=== PATIENT | female | born 1950 | race Caucasian/White ===

== ENCOUNTER → 2016-11-29 | Outpatient (CLI) | payer MEDICARE, OTHER | LOC: WI 09:40 | PROVIDERS: ATTEND Family Medicine | DX: N64.4 Mastodynia (principal) | CPT/HCPCS: 76642; G0204; 77066 ==

== ENCOUNTER → 2017-05-03 | Outpatient (CLI) | payer MEDICARE, OTHER ==
--- NOTE | 2017-05-03 10:17 | RADIOLOGY REPORT (SQ) ---
EXAM DESCRIPTION: HIP LEFT AP/LATERAL COMPLETED DATE/TIME: 05/03/2017 9:15 am REASON FOR STUDY: PAIN IN LT HIP/LT KNEE M25.552 PAIN IN LEFT HIP M25.562 PAIN IN LEFT KNEE COMPARISON: None. NUMBER OF VIEWS: Two views. TECHNIQUE: AP pelvis and additional frog-leg view of the left hip. LIMITATIONS: None. FINDINGS: MINERALIZATION: Osteopenic LEFT HIP: No fracture or dislocation. No significant joint space narrowing. No significant left anabella tabular or femoral head bony spurring. RIGHT HIP: Hip replacement. There is mild lucency along the distal tip of the prosthesis which could indicate loosening. PUBIS AND ISCHIUM: No fracture. PELVIS: No fracture. SACRUM: No fracture or dislocation. No worrisome bone lesions. LOWER LUMBAR SPINE: No fracture or dislocation. No worrisome bone lesions. No significant disc disea se. SOFT TISSUES: Surgical clips in the pelvis and left lower quadrant OTHER: No other significant finding. IMPRESSION: No plain film findings to explain history of left hip pain. TECHNICAL DOCUMENTATION: JOB ID: [id number] [employer]- All Rights Reserved
--- NOTE | 2017-05-03 10:19 | RADIOLOGY REPORT (SQ) ---
EXAM DESCRIPTION: KNEE LEFT 3 VIEWS COMPLETED DATE/TIME: 05/03/2017 9:16 am REASON FOR STUDY: PAIN IN LT HIP/LT KNEE M25.552 PAIN IN LEFT HIP M25.562 PAIN IN LEFT KNEE COMPARISON: Left hip films same date NUMBER OF VIEWS: Three views. TECHNIQUE: AP, lateral, and sunrise patella radiographic images acquired of the left knee. LIMITATIONS: None. FINDINGS: MINERALIZATION: Osteopenic BONES: No acute fracture or dislocation. No worrisome bone lesions. JOINT: Small suprapatellar knee joint effusion. There is moderate patellofemoral and lateral compart ment joint space narrowing and bony spurring. SOFT TISSUES: No soft tissue swelling. No radio-opaque foreign body. OTHER: No other significant finding. IMPRESSION: Small knee joint effusion. Moderate osteoarthritis in the patellofemoral and lateral compartment TECHNICAL DOCUMENTATION: JOB ID: [id number] [employer]- All Rights Reserved
== END ==
LOC: OD 08:50
PROVIDERS: ATTEND Family Medicine
DX: M25.552 Pain in left hip (principal); M25.562 Pain in left knee

== ENCOUNTER → 2017-05-30 | Outpatient (CLI) | payer MEDICARE, OTHER ==
--- NOTE | 2017-05-30 15:44 | WOMENS IMAGING REPORT ---
EXAM DESCRIPTION: BONE DENSITY HIP/SPINE COMPLETED DATE/TIME: 05/30/2017 2:34 pm REASON FOR STUDY: OSTEOPOROSIS M81.0 AGE-RELATED OSTEOPOROSIS W/O CURRENT PATHOLOGICAL FRAC COMPARISON: None. TECHNIQUE: Dual-Energy X-ray Absorptiometry (DEXA) of the AP Spine and Hip. LIMITATIONS: None. FINDINGS: LUMBAR SPINE: The bone mineral density (BMD) measured from L1-L4 in the AP projection correlates with a T-score of -0.5, which is normal as defined by the World Health Organization. HIP: The bone mineral density (BMD) measured in the left hip correlates with a T-score of -0.8, which is n ormal as defined by the World Health Organization. IMPRESSION: 1. LUMBAR SPINE: NORMAL. 2. HIP: NORMAL. COMMENT: The World Health Organization defines low BMD as follows: T-score: Normal: Greater than -1.0 Osteopenia: Between -1.0 and -2.5 Osteoporosis: Less than -2.5 without fractures Established osteoporosis: Less than -2.5 with fractures In general, you may wish to consider: Diagnosis Treatment Follow-up DEXA Normal BMD Prevention 2-3 years Osteopenia Prevention/Therapy 1-2 years Osteoporosis Therapy Yearly TECHNICAL DOCUMENTATION: JOB ID: [id number]- All Rights Reserved
== END ==
LOC: WI 13:46
PROVIDERS: ATTEND Physician Assistant Surgical
DX: M81.0 Age-related osteoporosis without current pathological fracture (principal)
CPT/HCPCS: 77080

== ENCOUNTER 2017-06-19 14:17 | Emergency (ER) | payer MEDICARE, OTHER ==
[2017-06-19] MEDS ORDERED: ASPIRIN 81 MG TABLET, CHEWABLE PO ONE (14:27)
--- NOTE | 2017-06-19 15:20 | ER Document Report ---
ED GI/ - General Chief Complaint: Abdominal Pain Stated Complaint: abdominal pain Time Seen by Provider: 06/19/17 14:42 Information source: Patient Notes: Patient is a 66-year-old female that states last night she had 4 episodes of nonbilious nonbloody vomiting. She states today she had 2 bouts of nonbloody diarrhea. She has had no vomiting today. She denies any fevers. She denies any flank pain or dysuria. Patient does state that she had some right lower quadrant pain, 8 out of 10, with little radiation to her right lower back. When asked about the chest pain complaint, she states last night with vomiting she had some substernal discomfort. She denies any aggravating or relieving factors to the abdominal or chest discomfort. She denies any pain today. Patient states she does have a history of intermittent atrial fibrillation. She denies being on any blood thinning medications. TRAVEL OUTSIDE OF THE [place] IN LAST 30 DAYS: No - HPI Patient complains to provider of: Abdominal pain, Diarrhea, Vomiting Onset: Other - See above Timing/Duration: Gradual Quality of pain: Achy, Sharp Severity at maximum: Moderate Severity in ED: None Pain Level: 0 Location: Other - See above Vaginal bleeding (Compared to normal period): None Sexual history: Inactive Associated symptoms: Other - See above Exacerbated by: Denies Relieved by: Denies Similar symptoms previously: No Recently seen / treated by doctor: No - Related Data Allergies/Adverse Reactions: Sulfa (Sulfonamide Antibiotics) Allergy (Severe, Verified 06/19/17 14:18) Anaphylaxis hydrocodone [From Vicodin] Allergy (Mild, Verified 06/19/17 14:18) ITCHING Home Medications: Current Home Medications Citalopram Hydrobromide [Citalopram HBr] 1 tab PO QAM 06/19/17 [History] Furosemide [Furosemide] 1 tab PO QAM 06/19/17 [History] Potassium Chloride 1 tab PO QAM 06/19/17 [History] Sodium Chloride [Saline Nasal [place]] 2 sprays NAREB QAM 06/19/17 [History] Past Medical History - General Information source: Patient - Social History Smoking Status: Unknown if Ever Smoked Cigarette use (# per day): No Chew tobacco use (# tins/day): No Smoking Education Provided: No Frequency of alcohol use: None Family History: Reviewed & Not Pertinent - Past Medical History Cardiac Medical History: Denies: Hx Coronary Artery Disease, Hx Heart Attack, Hx Hypertension Pulmonary Medical History: Reports: Hx Pneumonia - HX Denies: Hx Asthma, Hx Bronchitis, Hx COPD Neurological Medical History: Denies: Hx Cerebrovascular Accident, Hx Seizures Musculoskeltal Medical History: Reports Hx Arthritis - Immunizations Hx Diphtheria, Pertussis, Tetanus Vaccination: - UNSURE WHEN LAST ONE Review of Systems - Review of Systems Constitutional: denies: Fever EENT: denies: Eye discharge, Nose discharge Cardiovascular: Lightheaded. denies: Palpitations Respiratory: denies: Cough, Short of breath Gastrointestinal: Vomiting Genitourinary: denies: Dysuria Musculoskeletal: denies: Leg swelling Skin: Other - no hives. denies: Rash Neurological/Psychological: Other - no slurred speech -: Yes All other systems reviewed and negative Physical Exam - Vital signs Vitals: Pulse Resp 68 18 06/19/17 14:20 06/19/17 14:20 Notes: Reviewed vital signs and nursing note as charted by RN. CONSTITUTIONAL: Alert and oriented and responds appropriately to questions. Well -appearing; well-nourished HEAD: Normocephalic; atraumatic EYES: Sclerae non-icteric ENT: Normal nose; no rhinorrhea; moist mucous membranes; pharynx without lesions noted NECK: Supple without meningismus; non-tender; no cervical lymphadenopathy, no masses CARD: Regular rate and rhythm; no murmurs RESP: Normal chest excursion without splinting or tachypnea; breath sounds clear and equal bilaterally ABD/GI: Normal bowel sounds; elevated BMI; soft, non-tender currently to deep palpation in all 4 quadrants of the abdomen. There are no abdominal masses or inguinal hernias. No abdominal bruits present BACK: The back appears normal and is non-tender to palpation, there is no CVA tenderness EXT: Normal ROM in all joints; non-tender to palpation; no cyanosis, no effusions, no edema SKIN: Normal color for age and race; warm; dry; good turgor; capillary refill < 2 seconds; no acute lesions noted NEURO: CN II through XII are intact. Moves all extremities equally; Motor and sensory function intact PSYCH: The patient's mood and manner are appropriate. Grooming and personal hygiene are appropriate. Course - Re-evaluation Re-evalutation: 06/19/17 15:19 Given the above history and physical examination, we will obtain basic labs, liver panel, lipase, EKG, troponin, and lactic acid level. I would like to obtain the patient's urine analysis to see if there was blood present. Patient does have a history of kidney stones. Patient's BMI is elevated. If urine analysis shows possible hematuria I will most likely perform a noncontrasted CT scan of the abdomen and pelvis. If there is no obvious hematuria, I will provide IV contrast to assess the right lower quadrant. Patient has no tenderness currently. Vital signs are stable. 06/19/17 15:29 EKG shows a heart of 64, normal sinus rhythm, normal axis, no obvious ST elevation or depression, inverted T waves in leads III, aVF, V2 through V5. 06/19/17 16:35 Urine analysis is still pending. I called and spoke to the lab and they state that the urine analysis analyzer is currently broken. They are trying to look manually. Patient's lactic acid is returned to 2.3 but they state the other labs of hemolyzed. I will proactively order Rocephin, 1 g. I will add a CT scan Icurrently without contrast as I do not want to wait any further. 06/19/17 17:01 We were told at the patient's labs were hemolyzed. The patient was expedited to CT scan. It does show hemolyzed/canceled on all the chemistry. However, the patient's labs have resulted. Patient is already been taken for noncontrast CT scan due to the urgency of the lactic acid and abdominal pain. We are waiting on the noncontrast CT scan result. 06/19/17 17:46 CT scan as recorded consistent with a distal right ureteral kidney stone. Patient's pain is currently controlled. Liter of fluid has been provided. No obvious urinary tract infection. White blood cell count is recorded. Kidney function is recorded. Initial lactic acid is recorded, and a liter of fluid has been given. - Vital Signs Vital signs: Temp Pulse Resp BP Pulse Ox 68 15 107/63 95 06/19/17 14:20 06/19/17 15:01 06/19/17 15:01 06/19/17 15:01 - Laboratory Result Diagrams: 06/19/17 15:41 06/19/17 15:41 Laboratory results interpreted by me: 12/04/17 12/04/17 12/04/17 14:52 15:41 15:41 RDW 15.4 H Seg Neutrophils % 81.6 H Lymphocytes % 9.6 L BUN Est GFR (Non-Af Amer) Lactic Acid 2.3 H Ur Leukocyte Esterase SMALL H 06/19/17 15:41 RDW Seg Neutrophils % Lymphocytes % BUN 25 H Est GFR (Non-Af Amer) 58 L Lactic Acid Ur Leukocyte Esterase Discharge - Discharge Clinical Impression: Kidney stone on right side Vomiting Qualifiers: Vomiting type: unspecified Vomiting Intractability: non-intractable Nausea presence: with nausea Qualified Code(s): R11.2 - Nausea with vomiting, unspecified Diarrhea Qualifiers: Diarrhea type: unspecified type Qualified Code(s): R19.7 - Diarrhea, unspecified Abdominal pain Qualifiers: Abdominal location: right lower quadrant Qualified Code(s): R10.31 - Right lower quadrant pain Chest pain Qualifiers: Chest pain type: unspecified Qualified Code(s): R07.9 - Chest pain, unspecified Condition: Good Disposition: HOME, SELF-CARE Additional Instructions: Come back immediately with any return of abdominal pain, increased pain, fevers , persistent vomiting, change in location or quality of pain, any chest pain or shortness of breath, or any other acute problems. Please make sure that she follow-up with your primary care physician as we have discussed. Please also call Dr. Lane's office tomorrow morning at [phone]. Tell his office that you were seen in the emergency department with a kidney stone with a possible infection and was told to follow-up in his office in the next 2 days. Please take the antibiotics as prescribed. Please follow up also with your primary doctor regarding your atypical chest discomfort. Prescriptions: Cefuroxime Axetil [Ceftin 500 mg Tablet] 1 tab PO BID #20 tablet Hydrocodone/Acetaminophen [[place] 5-325 Tablet] 1 each PO Q6 PRN #12 tablet PRN Reason: For Pain Ondansetron [Zofran Odt 4 mg Tablet] 1 tab PO Q6H #15 tab.rapdis Referrals: DIAMOND TORRES MD [Primary Care Provider] - Follow up as needed
--- NOTE | 2017-06-19 15:26 | RADIOLOGY REPORT (SQ) ---
EXAM DESCRIPTION: CHEST SINGLE VIEW COMPLETED DATE/TIME: 06/19/2017 2:57 pm REASON FOR STUDY: cp COMPARISON: None. EXAM PARAMETERS: NUMBER OF VIEWS: One view. TECHNIQUE: Single frontal radiographic view of the chest acquired. RADIATION DOSE: NA LIMITATIONS: None. FINDINGS: LUNGS AND PLEURA: No opacities, masses or pneumothorax. No pleural effusion. MEDIASTINUM AND HILAR STRUCTURES: No masses. Contour normal. HEART AND VASCULAR STRUCTURES: Heart normal in size. Normal vasculature. BONES: No acute findings. HARDWARE: None in the chest. OTHER: No other significant finding. IMPRESSION: NO ACUTE RADIOGRAPHIC FINDING IN THE CHEST. TECHNICAL DOCUMENTATION: JOB ID: [id number] [employer]- All Rights Reserved
[2017-06-19 16:18] LABS: ABSOLUTE EOSINOPHILS # (AUTO) 0.1 10^3/uL (0.0-0.6); ABSOLUTE LYMPHOCYTES (AUTO) 0.7 10^3/uL (0.5-4.7); ABSOLUTE MONOCYTES (AUTO) 0.5 10^3/uL (0.1-1.4); ABSOLUTE NEUT (AUTO) 5.8 10^3/uL (1.7-8.2); BASOPHILS % (AUTO) 0.6 % (0-2); HEMATOCRIT 38.6 % (36.0-47.0); HGB HCT DIFFERENCE 0.4; LYMPHOCYTES % (AUTO) 9.6 % (13-45); MEAN CORPUSCULAR HEMOGLOBIN 27.1 pg (27.0-33.4); MEAN CORPUSCULAR HGB CONC 33.7 g/dL (32.0-36.0); MEAN CORPUSCULAR VOLUME 81 fl (80-97); MONOCYTES % (AUTO) 7.2 % (3-13); RED BLOOD COUNT 4.78 10^6/uL (3.72-5.28); RED CELL DISTRIBUTION WIDTH 15.4 % (11.5-14.0); SEGMENTED NEUTROPHILS % (AUTO) 81.6 % (42-78); WHITE BLOOD COUNT 7.2 10^3/uL (4.0-10.5)
[2017-06-19 16:32] LABS: APPEARANCE,URINE CLEAR; BILIRUBIN,URINE NEGATIVE (NEGATIVE); GLUCOSE, URINE NEGATIVE (NEGATIVE); KETONES,URINE NEGATIVE (NEGATIVE); LEUKOCYTE ESTERASE,URINE SMALL (NEGATIVE); NITRITE,URINE NEGATIVE (NEGATIVE); PROTEIN,URINE NEGATIVE (NEGATIVE); URINE SPECIFIC GRAVITY 1.011; UROBILINOGEN,URINE NEGATIVE mg/dL (<2.0)
[2017-06-19] MEDS ORDERED: CEFTRIAXONE 1 GM/D5W RTU 1 GM/50 ML RTUPB IV ONE (16:35)
[2017-06-19] MEDS ORDERED: MORPHINE SULFATE 10 MG/ML INJ IV ONE (16:35)
[2017-06-19 16:40] LABS: RBC,URINE RARE /HPF; WBC,URINE RARE /HPF
[2017-06-19 16:44] LABS: CREATINE KINASE MB 1.02 ng/mL (<4.55)
[2017-06-19 16:45] LABS: TROPONIN I < 0.012 ng/mL
[2017-06-19 16:51] LABS: ALANINE AMINOTRANSFERASE 34 U/L (9-52); ALBUMIN 4.1 g/dL (3.5-5.0); ALKALINE PHOSPHATASE 99 U/L (38-126); ANION GAP 12 (5-19); ASPARTATE AMINO TRANSFERASE 23 U/L (14-36); BILIRUBIN,DIRECT 0.4 mg/dL (0.0-0.4); BILIRUBIN,TOTAL 0.6 mg/dL (0.2-1.3); BLOOD UREA NITROGEN 25 mg/dL (7-20); CALCIUM 9.1 mg/dL (8.4-10.2); CARBON DIOXIDE 24 mmol/L (22-30); CHLORIDE 106 mmol/L (98-107); CREATINE KINASE 103 U/L (30-135); CREATININE RESULT 0.96 mg/dL (0.52-1.25); GLUCOSE 104 mg/dL (75-110); LIPASE 70.8 U/L (23-300); POTASSIUM 3.9 mmol/L (3.6-5.0); SODIUM 141.7 mmol/L (137-145); TOTAL PROTEIN 6.7 g/dL (6.3-8.2)
--- NOTE | 2017-06-19 17:36 | RADIOLOGY REPORT (SQ) ---
EXAM DESCRIPTION: CT ABD/PELVIS NO ORAL OR IV COMPLETED DATE/TIME: 06/19/2017 4:58 pm REASON FOR STUDY: 12, RLQ pain, increased lactic acid COMPARISON: None. TECHNIQUE: CT scan of the abdomen and pelvis performed without intravenous or oral contrast. Images reviewed with lung, soft tissue, and bone windows. Reconstructed coronal and sagittal MPR images revi ewed. All images stored on PACS. All CT scanners at this facility use dose modulation, iterative reconstruction, and/or weight based d osing when appropriate to reduce radiation dose to as low as reasonably achievable (ALARA). [facility]: Dose Right [facility]: CareDose [facility]: Dose Right [facility]: Teradose 4D [facility]: Smart Technologies RADIATION DOSE: mGy. LIMITATIONS: None. FINDINGS: LOWER CHEST: No significant findings. No nodules or infiltrates. NON-CONTRASTED LIVER, SPLEEN, ADRENALS: Evaluation limited by lack of IV contrast. No identified sign ificant masses. PANCREAS: No masses. No peripancreatic inflammatory changes. GALLBLADDER: Surgically absent. RIGHT KIDNEY AND URETER: No suspicious masses. Assessment limited by lack of IV contrast. No signif icant calcifications. Mild right hydronephrosis/ hydroureter. It appears that there may be 4 mm ca lculus in the distal right ureter. This area is somewhat obscured by artifact from right hip arthrop lasty. See image 79. LEFT KIDNEY AND URETER: No suspicious masses. Assessment limited by lack of IV contrast. No signifi cant calcifications. No hydronephrosis or hydroureter. AORTA AND RETROPERITONEUM: No aneurysm. No retroperitoneal masses or adenopathy. BOWEL AND PERITONEAL CAVITY: No obvious masses or inflammatory changes. No free fluid. Radiopaque chavez ture is seen in the bowel loops on the left side of the abdomen. APPENDIX: Normal. PELVIS, BLADDER, AND ABDOMINAL WALL:Urinary bladder is normal. Possible distal ureteral calcificatio n as discussed above. Evaluation of the mid and lower pelvis somewhat limited by artifact from a rig ht hip arthroplasty. BONES: No significant findings. OTHER: No other significant finding. IMPRESSION: 1. Right hydronephrosis/hydroureter secondary to a 4 mm calculus in the distal right ur eter. 2. Surgical changes in the bowel in the left side of the abdomen. COMMENT: Quality ID # [id number]: Final reports with documentation of one or more dose reduction techniques (e.g., Automated exposure control, adjustment of the mA and/or kV according to patient size, use of iterative reconstruction technique) TECHNICAL DOCUMENTATION: JOB ID: [id number] [employer]- All Rights Reserved
[2017-06-19] MEDS ORDERED: NORMAL SALINE 1000 ML 1,000 ML IV ONE ×2 (17:50→17:57)
[2017-06-19 20:31] VITALS: BP 105/57
--- NOTE | 2017-06-19 20:44 | EKG REPORT ---
SEVERITY:- ABNORMAL ECG - SINUS RHYTHM ABNORMAL T, CONSIDER ISCHEMIA, DIFFUSE LEADS : Confirmed by: Roque Núñez 19-Jun-2017 20:43:49
== END 2017-06-19 20:30 | disposition home or self-care (01) ==
LOC: ER 14:17
DX: N20.0 Calculus of kidney (principal); R10.31 Right lower quadrant pain; R07.9 Chest pain, unspecified; R11.2 Nausea with vomiting, unspecified; R19.7 Diarrhea, unspecified; Z88.2 Allergy status to sulfonamides; Z88.6 Allergy status to analgesic agent
CPT/HCPCS: 93005; 99285; 96361; 96375; 96365; 36415; 87040; 87086; 82553; 82550; 83605; 83690; 85025; 80053; 81001; 84484; 71010; 74176; 93010; A9270; J2270; J7030; J0696

== ENCOUNTER → 2017-09-05 | Outpatient (CLI) | payer MEDICARE, OTHER ==
[2017-09-05 11:16] LABS: APPEARANCE,URINE SLIGHTLY-CLOUDY; BILIRUBIN,URINE NEGATIVE (NEGATIVE); COLOR,URINE YELLOW; GLUCOSE, URINE NEGATIVE (NEGATIVE); KETONES,URINE NEGATIVE (NEGATIVE); LEUKOCYTE ESTERASE,URINE NEGATIVE (NEGATIVE); NITRITE,URINE NEGATIVE (NEGATIVE); PROTEIN,URINE NEGATIVE (NEGATIVE); URINE SPECIFIC GRAVITY 1.011; UROBILINOGEN,URINE NEGATIVE mg/dL (<2.0)
[2017-09-05 11:21] LABS: ABSOLUTE BASOPHILS # (AUTO) 0.1 10^3/uL (0.0-0.2); ABSOLUTE EOSINOPHILS # (AUTO) 0.1 10^3/uL (0.0-0.6); ABSOLUTE LYMPHOCYTES (AUTO) 1.1 10^3/uL (0.5-4.7); ABSOLUTE MONOCYTES (AUTO) 0.5 10^3/uL (0.1-1.4); BASOPHILS % (AUTO) 1.2 % (0-2); EOSINOPHILS % (AUTO) 1.7 % (0-6); HEMATOCRIT 41.5 % (36.0-47.0); HEMOGLOBIN 13.9 g/dL (12.0-15.5); LYMPHOCYTES % (AUTO) 19.4 % (13-45); MEAN CORPUSCULAR HEMOGLOBIN 27.7 pg (27.0-33.4); MEAN CORPUSCULAR HGB CONC 33.5 g/dL (32.0-36.0); MEAN CORPUSCULAR VOLUME 83 fl (80-97); MONOCYTES % (AUTO) 8.4 % (3-13); PLATELET COUNT 240 10^3/uL (150-450); RED BLOOD COUNT 5.02 10^6/uL (3.72-5.28); RED CELL DISTRIBUTION WIDTH 16.7 % (11.5-14.0); SEGMENTED NEUTROPHILS % (AUTO) 69.3 % (42-78); TOTAL CELLS COUNTED % (AUTO) 100 %; WHITE BLOOD COUNT 5.7 10^3/uL (4.0-10.5)
[2017-09-05 11:35] LABS: ANION GAP 12 (5-19); BLOOD UREA NITROGEN 23 mg/dL (7-20); CALCIUM 8.6 mg/dL (8.4-10.2); CARBON DIOXIDE 23 mmol/L (22-30); CHLORIDE 106 mmol/L (98-107); GLUCOSE 75 mg/dL (75-110); POTASSIUM 4.9 mmol/L (3.6-5.0)
--- NOTE | 2017-09-05 13:19 | RADIOLOGY REPORT (SQ) ---
EXAM DESCRIPTION: CHEST PA/LATERAL COMPLETED DATE/TIME: 09/05/2017 12:08 pm REASON FOR STUDY: PRE OP COMPARISON: 06/19/2017 NUMBER OF VIEWS: Two view. TECHNIQUE: Frontal and lateral radiographic views of the chest acquired. LIMITATIONS: None. FINDINGS: LUNGS AND PLEURA: No opacities, masses or pneumothorax. No pleural effusion. MEDIASTINUM AND HILAR STRUCTURES: No masses or contour abnormalities. HEART AND VASCULATURE: Heart normal size. No evidence for failure. BONY STRUCTURES: No acute findings. HARDWARE: None. OTHER: No other significant finding. IMPRESSION: NO SIGNIFICANT RADIOGRAPHIC FINDING IN THE CHEST. TECHNICAL DOCUMENTATION: JOB ID: [id number] [employer]- All Rights Reserved
--- NOTE | 2017-09-05 18:48 | EKG REPORT ---
SEVERITY:- ABNORMAL ECG - SINUS RHYTHM NONSPECIFIC T ABNORMALITIES, DIFFUSE LEADS : Confirmed by: Crispin Merritt MD 05-Sep-2017 18:47:44
== END ==
LOC: OD 10:22
PROVIDERS: ATTEND Orthopaedic Surgery
DX: Z01.810 Encounter for preprocedural cardiovascular examination (principal); Z01.812 Encounter for preprocedural laboratory examination; Z01.818 Encounter for other preprocedural examination
CPT/HCPCS: 36415; 71046; 80048; 81001; 85025; 93005; 93010

== ENCOUNTER → 2017-09-06 | Outpatient (CLI) | payer MEDICARE, OTHER ==
--- NOTE | 2017-09-07 09:19 | WOMENS IMAGING REPORT ---
EXAM DESCRIPTION: BILAT DIAGNOSTIC MAMMO W/CAD; U/S BREAST UNILAT LIMITED COMPLETED DATE/TIME: 09/06/2017 11:30 am; 09/06/2017 11:55 am REASON FOR STUDY: MASTODYNIA; N64.4; LEFT BREAST PAIN N64.4 N64.4 MASTODYNIA COMPARISON: Mammograms 11/29/2016, 11/18/2015 TECHNIQUE: Standard craniocaudal and mediolateral oblique views of each breast recorded using digita l acquisition. Additional left breast 90 mediolateral view and exaggerated craniocaudad view. Left breast ultrasound was also performed. LIMITATIONS: None. FINDINGS: RIGHT BREAST MASSES: No suspicious masses. CALCIFICATIONS: No new or suspicious calcifications. ARCHITECTURAL DISTORTION: Old right breast lumpectomy scar 3 o'clock position with benign dystrophic calcification, stable DEVELOPING DENSITY: None. ASYMMETRY: None noted. OTHER: No other significant findings. LEFT BREAST MASSES: No suspicious masses. CALCIFICATIONS: No new or suspicious calcifications. ARCHITECTURAL DISTORTION: Patient has an old lumpectomy site in the far lateral left breast about the 2 o'clock position. This is stable mammographically compared to prior studies. Surgical clips at t he lumpectomy site are present DEVELOPING DENSITY: None. ASYMMETRY: None noted. OTHER: No other significant finding. Read with the assistance of CAD: .[facility] - R2 Cenova Version 1.3 .[facility] - R2 Cenova Version 1.3 .[facility] - R2 Cenova Version 2.4 .[facility] [place] R2 Cenova Version 2.4 .[facility] - R2 [employer] Version 9.2 Patient describes an area of left breast pain adjacent to the lumpectomy scar left upper outer quadra nt. Ultrasound of the area of breast pain along the scar demonstrates no discrete cystic or solid le sions. There is a bandlike area of acoustic absorption compatible with scar which correlates with th e skin incision. IMPRESSION: No mammographic evidence for malignancy right breast. No mammographic or sonographic evidence for malignancy left breast BREAST DENSITY: b. There are scattered areas of fibroglandular density. BIRAD: 2 Benign findings. RECOMMENDATION: RECOMMENDED FOLLOW UP: Clinical followup for breast pain. Otherwise, please continu e yearly bilateral screening exam in August 2018. Consider bilateral screening tomosynthesis SPECIFIC INTERVENTION/IMAGING/CONSULTATION RECOMMENDED:No additional intervention/ imaging/consultati on needed at this time. COMMUNICATION:Patient notified by letter COMMENT: The patient has been notified of the results by letter per MQSA requirements. Additional no tification policies are in place for contacting patient with suspicious or incomplete findings. Quality ID #225: The [employer] recommends an annual screening mammogram for women aged 40 years or over. This facility utilizes a reminder system to ensure that all patients receive reminder letters, and/or direct phone calls for appointments. This includes reminders for routine scr eening mammograms, diagnostic mammograms, or other Breast Imaging Interventions when appropriate. Th is patient will be placed in the appropriate reminder system. The [employer] (ACR) has developed recommendations for screening MRI of the breast s in certain patient populations, to be used in conjunction with mammography. Breast MRI surveillanc e may be appropriate for women with more than 20% lifetime risk of developing breast cancer as deter mined by genetic testing, significant family history of the disease, or history of mantle radiation f or Hodgkins Disease. ACR Practice Guidelines 2008. TECHNICAL DOCUMENTATION: FINDING NUMBER: (1) ASSESSMENT: (1) JOB ID: [id number] [employer]- All Rights Reserved
--- NOTE | 2017-09-07 09:19 | WOMENS IMAGING REPORT ---
EXAM DESCRIPTION: BILAT DIAGNOSTIC MAMMO W/CAD; U/S BREAST UNILAT LIMITED COMPLETED DATE/TIME: 09/06/2017 11:30 am; 09/06/2017 11:55 am REASON FOR STUDY: MASTODYNIA; N64.4; LEFT BREAST PAIN N64.4 N64.4 MASTODYNIA COMPARISON: Mammograms 11/29/2016, 11/18/2015 TECHNIQUE: Standard craniocaudal and mediolateral oblique views of each breast recorded using digita l acquisition. Additional left breast 90 mediolateral view and exaggerated craniocaudad view. Left breast ultrasound was also performed. LIMITATIONS: None. FINDINGS: RIGHT BREAST MASSES: No suspicious masses. CALCIFICATIONS: No new or suspicious calcifications. ARCHITECTURAL DISTORTION: Old right breast lumpectomy scar 3 o'clock position with benign dystrophic calcification, stable DEVELOPING DENSITY: None. ASYMMETRY: None noted. OTHER: No other significant findings. LEFT BREAST MASSES: No suspicious masses. CALCIFICATIONS: No new or suspicious calcifications. ARCHITECTURAL DISTORTION: Patient has an old lumpectomy site in the far lateral left breast about the 2 o'clock position. This is stable mammographically compared to prior studies. Surgical clips at t he lumpectomy site are present DEVELOPING DENSITY: None. ASYMMETRY: None noted. OTHER: No other significant finding. Read with the assistance of CAD: .[facility] - R2 Cenova Version 1.3 .[facility] - R2 Cenova Version 1.3 .[facility] - R2 Cenova Version 2.4 [place] [place] Cenova Version 2.4 .[facility] - R2 [employer] Version 9.2 Patient describes an area of left breast pain adjacent to the lumpectomy scar left upper outer quadra nt. Ultrasound of the area of breast pain along the scar demonstrates no discrete cystic or solid le sions. There is a bandlike area of acoustic absorption compatible with scar which correlates with th e skin incision. IMPRESSION: No mammographic evidence for malignancy right breast. No mammographic or sonographic evidence for malignancy left breast BREAST DENSITY: b. There are scattered areas of fibroglandular density. BIRAD: 2 Benign findings. RECOMMENDATION: RECOMMENDED FOLLOW UP: Clinical followup for breast pain. Otherwise, please continu e yearly bilateral screening exam in August 2018. Consider bilateral screening tomosynthesis SPECIFIC INTERVENTION/IMAGING/CONSULTATION RECOMMENDED:No additional intervention/ imaging/consultati on needed at this time. COMMUNICATION:Patient notified by letter COMMENT: The patient has been notified of the results by letter per MQSA requirements. Additional no tification policies are in place for contacting patient with suspicious or incomplete findings. Quality ID #[id number]: The [employer] recommends an annual screening mammogram for women aged 40 years or over. This facility utilizes a reminder system to ensure that all patients receive reminder letters, and/or direct phone calls for appointments. This includes reminders for routine scr eening mammograms, diagnostic mammograms, or other Breast Imaging Interventions when appropriate. Th is patient will be placed in the appropriate reminder system. The [employer] (ACR) has developed recommendations for screening MRI of the breast s in certain patient populations, to be used in conjunction with mammography. Breast MRI surveillanc e may be appropriate for women with more than 20% lifetime risk of developing breast cancer as deter mined by genetic testing, significant family history of the disease, or history of mantle radiation f or Hodgkins Disease. ACR Practice Guidelines 2008. TECHNICAL DOCUMENTATION: FINDING NUMBER: (1) ASSESSMENT: (1) JOB ID: [id number] [employer]- All Rights Reserved
== END ==
LOC: WI 10:44
PROVIDERS: ATTEND Family Medicine
DX: N64.4 Mastodynia (principal)
CPT/HCPCS: 76642; 77066

== ENCOUNTER 2017-09-25 05:25 | Inpatient (IN) | payer MEDICARE, OTHER ==
[~2017-09-25 05:25] MED LIST: BUPIVACAINE INJ/PF LIPOSOME/PF 266 MG/20 ML SDV IJ PRN; CEFAZOLIN INJ 1 GM VIAL IV PRN; IBUPROFEN 800 MG in DEXTROSE 5%-WATER 250 ML IV PRN; IBUPROFEN 800 MG/NS 250 ML IV PRN; LACTATED RINGERS 1000 ML IV PRN; LANSOPRAZOLE 15 MG TAB.RAP.DR PO PRN; LIDOCAINE 0.5% INJ-PF (5 MG/ML) 50 ML SDV SUBCUT PRN; OXYCODONE HCL SR 10 MG TABLET PO PRN; VANCOMYCIN HCL 1,000 MG in DEXTROSE 5%-WATER 250 ML IV PRN
[2017-09-25] MEDS ORDERED: LIDOCAINE 2% INJ-PF (20 MG/ML) 10 ML AMPUL ONE (06:27)
[2017-09-25] MEDS ORDERED: FENTANYL CITRATE INJ/PF 100 MCG/2 ML AMPUL ONE ×2 (06:27)
[2017-09-25] MEDS ORDERED: ONDANSETRON HCL INJ/PF 4 MG/2 ML SDV ONE (06:28)
[2017-09-25] MEDS ORDERED: MIDAZOLAM 2 MG/2 ML INJ ONE (06:28)
[2017-09-25] MEDS ORDERED: PROPOFOL INJ 200 MG/20 ML VIAL IV ONE (06:28)
[2017-09-25] MEDS ORDERED: DEXAMETHASONE SOD PHOSPHATE INJ 4 MG/1 ML VIAL ONE (06:28)
[2017-09-25] MEDS ORDERED: ACETAMINOPHEN 0 ML IV ONE (06:28)
[2017-09-25] MEDS ORDERED: BUPIVACAINE HCL/DEX-WATER/PF 15 MG/2 ML AMPULE ONE (06:29)
[2017-09-25] MEDS ORDERED: KETAMINE HCL INJ 500 MG/10 ML VIAL ONE (06:41)
[2017-09-25] MEDS ORDERED: BUPIVACAINE INJ/PF LIPOSOME/PF 266 MG/20 ML SDV ONE (06:48)
[2017-09-25] MEDS ORDERED: THROMBIN (BOVINE) 5000 UNIT EPITAXIS KIT ONE (06:48)
[2017-09-25] MEDS ORDERED: THROMBIN (BOVINE) TOPICAL 20000 UNIT VIAL ONE (06:48)
--- NOTE | 2017-09-25 08:23 | Operative Report ---
Operative Report DATE OF SURGERY: 09/25/17 PREOPERATIVE DIAGNOSIS: Left knee arthritis OPERATION: Left knee arthroplasty SURGEON: KLEVER TAYLOR ANESTHESIA: Spinal TISSUE REMOVED OR ALTERED: Bone to pathology ESTIMATED BLOOD LOSS: 100 PROCEDURE: Implants used: Femur: Barb triathlon size 5 CR femur Tibia: 5 tibia Tibial liner: 11 mm CS insert Patella: 35 mm oval patella Procedure with the patient supine on the operating table the left the limb is prepped and draped in a sterile fashion. The limb was elevated for exsanguination and the tourniquet inflated to 280 torr. A standard midline median parapatellar approach the knee is taken. Access is gained to the femoral canal through the intercondylar notch. Intramedullary alignment instrumentation used to resect 10 mm of distal femur in 5 of valgus. Sizing guide indicated a size 5 femur. Appropriate cutting jig is then used to fashion anterior posterior and chamfer cuts. A trial reduction femurs performed and this is judged to be adequate. Attention was next turned to the tibia. Using an extra medullary alignment system 9 millimeters was resected off the lateral tibial plateau. This is sized to a size 5 tibia. A trial reduction was now performed with a 5 femur and a 5 tibia using a 11 millimeters spacer. It is full extension and central patellofemoral tracking. The articular surface the patella was next resected using an oscillating saw. All trial implants were removed. Polymethylmethacrylate is mixed and used to cement the above implants in place. On adequate curing the cement excess cement was removed the tourniquet was deflated hemostasis obtained the wound is then closed in layers using interrupted Vicryl followed by [place]. A sterile compressive dressing was applied and the patient returned to recovery room in satisfactory condition.
[2017-09-25] MEDS ORDERED: DIPHENHYDRAMINE HCL 50 MG/ML VIAL IV PRN ×2 (08:24→08:53)
[2017-09-25] MEDS ORDERED: ONDANSETRON 4 MG TAB.RAPDIS PO PRN (08:24)
[2017-09-25] MEDS ORDERED: ZOLPIDEM TARTRATE 5 MG TABLET PO PRN (08:24)
[2017-09-25] MEDS ORDERED: RINGERS SOLUTION,LACTATED 1,000 ML IV PRN (08:24)
[2017-09-25] MEDS ORDERED: ACETAMINOPHEN 325 MG TABLET PO PRN (08:24)
[2017-09-25] MEDS ORDERED: ONDANSETRON HCL INJ/PF 4 MG/2 ML SDV IV PRN (08:24)
[2017-09-25] MEDS ORDERED: MAG HYDROX/AL HYDROX/SIMETH SUSP 30 ML UDCUP PO PRN (08:24)
--- NOTE | 2017-09-25 08:26 | Physician Advisory Note ---
Physician Advisor ProgressNote .: [facility] the medical [facility] for this patient. Physician Advisor Statement: Pt w/underlying co-morbidities including MICHELLE needing CPAP, OA, hypothyroidism, depression, SVT, essential tremor, cataracts, Lt breast CA/lumpectomy, gastric bypass for obesity, prior gibran/Rt THR//hyst - presents for Lt TKA. H&P nicely documents exam findings, nonsurgical options attempted, ongoing pain severe w/weight bearing. Nurse marialuisa pre-op documents PROMIS score 29: unable to do vigorous activities, walk >1mi, climb 1 flight stairs; quite limited in lifting/carring groc.s, kneeling/stooping, vacuuming/yard work. Please document: 1. clinical co-morbidities above, & 2. the specific OA findings of the recent knee x-ray 05/03/17 (joint narrowing & bony spurring) to support surgical necessity. 3. "I FULLY EXPECT this patient to require at least 2 midnights of care in hospital DUE TO " - or this patient should have surgery as Outpatient status, changing to Inpatient the next day if not clinically ok for d/c home at that point. Thanks! CK
[2017-09-25] MEDS ORDERED: FENTANYL CITRATE INJ/PF 100 MCG/2 ML AMPUL IV PRN ×3 (08:53)
[2017-09-25] MEDS ORDERED: PROMETHAZINE HCL INJ 25 MG/1 ML VIAL IV PRN ×2 (08:53)
[2017-09-25] MEDS ORDERED: OXYCODONE-ACETAMINOPHEN 5-325 MG TABLET PO PRN ×2 (08:53)
[2017-09-25] MEDS ORDERED: MORPHINE SULFATE 10 MG/ML INJ IV PRN (08:53)
[2017-09-25] MEDS ORDERED: MEPERIDINE HCL/PF INJ 25 MG/1 ML DISP.SYRIN IV PRN (08:53)
[2017-09-25] MEDS ORDERED: TRANEXAMIC ACID INJ/PF 1,000 MG/10 ML SDV IV ONE ×2 (09:49→10:00)
[2017-09-25] MEDS ORDERED: ATENOLOL PO SCH (10:00)
[2017-09-25] MEDS ORDERED: (PENDING PHARMACY ID) (Omeprazole [Omeprazole] 1 CAP) PO SCH (10:00)
[2017-09-25] MEDS ORDERED: POTASSIUM CHLORIDE PO SCH (10:00)
[2017-09-25] MEDS ORDERED: FLUTICASONE PROPIONATE IH SCH (10:00)
[2017-09-25] MEDS ORDERED: LEVOTHYROXINE SODIUM PO SCH (10:00)
--- NOTE | 2017-09-25 10:25 | RADIOLOGY REPORT (SQ) ---
EXAM DESCRIPTION: KNEE LEFT 2 VIEWS COMPLETED DATE/TIME: 09/25/2017 9:11 am REASON FOR STUDY: Post OP -Long Cassette in PACU M17.12 UNILATERAL PRIMARY OSTEOARTHRITIS, LEFT KNE E COMPARISON: 05/03/2017 NUMBER OF VIEWS: Four views. TECHNIQUE: AP, lateral, radiographic images acquired of the left knee. LIMITATIONS: None. FINDINGS: MINERALIZATION: Normal. BONES: No acute fracture or dislocation. No worrisome bone lesions. JOINT: Status post left total knee arthroplastic since the prior examination. Position and alignmen t are anatomic. SOFT TISSUES: Post surgical changes related to total knee arthroplasty. OTHER: No other significant finding. IMPRESSION: 1 Status post left total knee arthroplasty since the prior examination dated 05/03/2017. TECHNICAL DOCUMENTATION: JOB ID: [id number] [employer]- All Rights Reserved Reading location - IP/workstation name: [email or web address]
[2017-09-25] MEDS: ASPIRIN 81 MG TABLET, ENT COATED PO SCH (11:18)
[2017-09-25] MEDS: OXYCODONE HCL IR 5 MG TABLET PO PRN ×2 (11:18→17:21)
[2017-09-25] MEDS: FUROSEMIDE 20 MG TABLET PO SCH (14:22)
[2017-09-25] MEDS: PRENATAL VITAMIN W DHA CAPSULE PO SCH (14:22)
[2017-09-25] MEDS: OXYCODONE HCL SR 10 MG TABLET PO SCH ×2 (14:22→21:33)
[2017-09-25] MEDS: BUPROPION HCL 100 MG TABLET PO SCH (14:22)
[2017-09-25] MEDS: CITALOPRAM HYDROBROMIDE 20 MG TABLET PO SCH (14:22)
[2017-09-25] MEDS: SENNOSIDES/DOCUSATE 8.6-50 MG 1 EACH TABLET PO SCH ×2 (14:22→17:21)
[2017-09-25] MEDS: GABAPENTIN 300 MG CAPSULE PO SCH (14:22)
[2017-09-25] MEDS ORDERED: PHENYLEPHRINE HCL INJ/PF 10 MG/1 ML SDV ONE (14:57)
[2017-09-25] MEDS ORDERED: FENTANYL 25 MCG/HR PATCH.TD72 TD SCH (15:00)
[2017-09-25] MEDS ORDERED: VANCOMYCIN HCL 1,000 MG in DEXTROSE 5%-WATER 250 ML IV ONE (20:24)
[2017-09-26 05:19] LABS: HEMATOCRIT 30.1 % (36.0-47.0); HEMOGLOBIN 10.7 g/dL (12.0-15.5); MEAN CORPUSCULAR HEMOGLOBIN 28.9 pg (27.0-33.4); MEAN CORPUSCULAR HGB CONC 35.4 g/dL (32.0-36.0); MEAN CORPUSCULAR VOLUME 82 fl (80-97); PLATELET COUNT 173 10^3/uL (150-450); RED BLOOD COUNT 3.69 10^6/uL (3.72-5.28); RED CELL DISTRIBUTION WIDTH 15.7 % (11.5-14.0); WHITE BLOOD COUNT 9.4 10^3/uL (4.0-10.5)
[2017-09-26] MEDS: LANSOPRAZOLE 15 MG TAB.RAP.DR PO SCH (05:31)
[2017-09-26] MEDS: OXYCODONE HCL IR 5 MG TABLET PO PRN ×3 (05:31→18:02)
[2017-09-26] MEDS: LEVOTHYROXINE SODIUM 0.025 MG TABLET PO SCH (05:32)
[2017-09-26] MEDS: LEVOTHYROXINE SODIUM 0.1 MG TABLET PO SCH (05:32)
[2017-09-26 05:38] LABS: ANION GAP 7 (5-19); BLOOD UREA NITROGEN 17 mg/dL (7-20); CALCIUM 8.8 mg/dL (8.4-10.2); CARBON DIOXIDE 24 mmol/L (22-30); CHLORIDE 101 mmol/L (98-107); GLUCOSE 117 mg/dL (75-110); POTASSIUM 4.3 mmol/L (3.6-5.0); SODIUM 132.4 mmol/L (137-145)
--- NOTE | 2017-09-26 06:36 | PDOC PROGRESS REPORT ---
Subjective Progress Note for:: 09/26/17 Reason For Visit: LEFT KNEE ARTHRITIS 66-year-old white female postop day 1 left knee arthroplasty. Postoperative course was notable for pain and nausea. Physical Exam Vital Signs: Temp Pulse Resp BP Pulse Ox 36.7 C 71 15 136/68 H 98 09/26/17 00:00 09/26/17 00:00 09/26/17 00:00 09/26/17 00:00 09/26/17 00:00 Intake & Output 09/24/17 09/25/17 09/26/17 06:59 06:59 06:59 Intake Total 0 5250 Output Total 3000 Balance 0 2250 General appearance: PRESENT: no acute distress, well-nourished Head exam: PRESENT: normocephalic Respiratory exam: PRESENT: unlabored, other - CPAP Cardiovascular exam: PRESENT: RRR Pulses: PRESENT: +1 pedal pulses bilateral Vascular exam: PRESENT: normal capillary refill GI/Abdominal exam: PRESENT: soft Rectal exam: PRESENT: deferred Extremities exam: PRESENT: other - Left lower extremity dressings clean dry and intact. There is ecchymosis both from the left tourniquet as well as from the right Bovie grounding pad Neurological exam: PRESENT: alert, awake, oriented to person, oriented to place , oriented to time, oriented to situation. ABSENT: motor sensory deficit Psychiatric exam: PRESENT: appropriate affect, normal mood. ABSENT: homicidal ideation, suicidal ideation Results Laboratory Results: 09/26/17 04:46 09/26/17 04:46 09/25/17 09/26/17 09/26/17 06:38 04:46 04:46 WBC 9.4 RBC 3.69 L Hgb 10.7 L Hct 30.1 L MCV 82 MCH 28.9 MCHC 35.4 RDW 15.7 H Plt Count 173 Sodium 132.4 L Potassium 3.9 4.3 Chloride 101 Carbon Dioxide 24 Anion Gap 7 BUN 17 Creatinine 0.55 Est GFR ( Amer) > 60 Est GFR (Non-Af Amer) > 60 Glucose 117 H Calcium 8.8 Impressions: Knee X-Ray 09/25/17 08:26 IMPRESSION: 1 Status post left total knee arthroplasty since the prior examination dated 05/03/2017. Status: Imported from PACS Assessment & Plan - Diagnosis (1) Arthritis of left knee Is this a current diagnosis for this admission?: Yes Plan: 66-year-old white female postop day 1 left knee arthroplasty. Postoperative course notable for pain and nausea limiting her ambulation. She ablated 50 feet with physical therapy yesterday. Tentative plan will be ongoing physical therapy today for weightbearing as tolerated ambulation and anticipate discharge home tomorrow with home health services. - Time Time Spent with patient: 15-24 minutes Anticipated discharge: Home with Homehealth Within: within 24 hours
[2017-09-26] MEDS: POTASSIUM CHLORIDE 10 MEQ TABLET.SA PO SCH (09:01)
[2017-09-26] MEDS: PRENATAL VITAMIN W DHA CAPSULE PO SCH (09:03)
[2017-09-26] MEDS: OXYCODONE HCL SR 10 MG TABLET PO SCH ×2 (09:03→21:39)
[2017-09-26] MEDS: GABAPENTIN 300 MG CAPSULE PO SCH (09:04)
[2017-09-26] MEDS: CITALOPRAM HYDROBROMIDE 20 MG TABLET PO SCH (09:04)
[2017-09-26] MEDS: BUPROPION HCL 100 MG TABLET PO SCH (09:04)
[2017-09-26] MEDS: FUROSEMIDE 20 MG TABLET PO SCH (09:05)
[2017-09-26] MEDS: ASPIRIN 81 MG TABLET, ENT COATED PO SCH (09:05)
[2017-09-26] MEDS: SENNOSIDES/DOCUSATE 8.6-50 MG 1 EACH TABLET PO SCH ×2 (09:06→17:30)
[2017-09-26] MEDS: ATENOLOL 50 MG TABLET PO SCH (09:08)
[2017-09-26] MEDS: FLUTICASONE NASAL SPRAY 50 MCG/SPRY 120 SPRAY/16 GM NASL SCH (09:08)
--- NOTE | 2017-09-26 10:14 | Physician Advisory Note ---
Physician Advisor ProgressNote .: Pursuant to the plan for [facility], I have reviewed the medical record for this patient. Physician Advisor Statement: Excellent POD#1 note r.e. continued need for hospitalization for 2nd MN tonight : pain & nausea limiting ambulation, pt has only been able to walk 50 ft (goal 300 ft) so far, ROM not yet full. (Also, PT documented lightheadedness w/ walking, pt has acute hyponatremia & acute drop in H/H from 13.9 on 09/05/17 to 10.7 on 09/26/17 w/BLE ecchymosis noted.) Please consider documenting, if you agree: 1. "Precipitous drop in H/H, due to " 2. "Acute hyponatremia, suspect due to " Status: appropriate for Inpatient status now. Thanks! CK
[2017-09-27] MEDS: OXYCODONE HCL IR 5 MG TABLET PO PRN ×2 (01:50→07:42)
[2017-09-27 05:49] LABS: HEMATOCRIT 28.7 % (36.0-47.0); MEAN CORPUSCULAR HEMOGLOBIN 28.5 pg (27.0-33.4); MEAN CORPUSCULAR HGB CONC 34.8 g/dL (32.0-36.0); MEAN CORPUSCULAR VOLUME 82 fl (80-97); PLATELET COUNT 159 10^3/uL (150-450); RED CELL DISTRIBUTION WIDTH 16.3 % (11.5-14.0); WHITE BLOOD COUNT 7.4 10^3/uL (4.0-10.5)
[2017-09-27] MEDS: LANSOPRAZOLE 15 MG TAB.RAP.DR PO SCH (05:53)
[2017-09-27] MEDS: LEVOTHYROXINE SODIUM 0.025 MG TABLET PO SCH (05:53)
[2017-09-27] MEDS: LEVOTHYROXINE SODIUM 0.1 MG TABLET PO SCH (05:54)
--- NOTE | 2017-09-27 07:00 | PDOC DISCHARGE SUMMARY ---
General - Admit/Disc Date/PCP Admission Date/Primary Care Provider: 09/25/17 05:25 DIAMOND TORRES MD Discharge Date: 09/27/17 - Discharge Diagnosis (1) Arthritis of left knee Is this a current diagnosis for this admission?: Yes - Additional Information Resuscitation Status: Full Code Discharge Diet: As Tolerated, Regular Discharge Activity: Balance Activity w/Rest, No Driving, No tub bath Home Medications: Atenolol [Tenormin] 25 mg PO Q12 09/11/17 Bupropion HCl 100 mg PO DAILY 09/11/17 Citalopram Hydrobromide [Citalopram HBr] 20 mg PO DAILY 09/11/17 Furosemide 40 tab PO DAILY 09/11/17 Gabapentin 300 mg PO QHS 09/11/17 Levothyroxine Sodium 125 mcg PO Q6AM 09/11/17 Meloxicam 15 mg PO QHS 09/11/17 Omeprazole 20 mg PO Q6AM 09/11/17 Potassium Chloride 20 meq PO DAILY 09/11/17 Sodium Chloride [Saline Nasal [place]] 2 sprays IH DAILY 09/11/17 Fluticasone Propionate [Flonase Nasal [place] 50 Mcg/[place] 16 gm] 2 spray NASL DAILY 09/25/17 Aspirin [Ecotrin 81 mg EC Tablet] 81 mg PO DAILY tabec 09/27/17 Oxycodone HCl [Oxy-Ir 5 mg Tablet] 5 mg PO Q6HP PRN tablet 09/27/17 History of Present Illness History of Present Illness: MARIA DEL CARMEN RAMSEY is a 66 year old female with progressive left knee pain and functional disability secondary osteoarthritis. Patient is admitted for elective left knee arthroplasty. Hospital Course Hospital Course: Patient is admitted through the operating room where she undergoes uncomplicated left knee arthroplasty. She is returned to floor in satisfactory condition. Progress with physical therapy on postop day 0 is limited by pain and some nausea. Patient makes excellent progress on the first postoperative day and is ambulating up and down the hallways. Left knee dressing remains clean dry and intact. Hematocrit remains above 28%. Physical Exam Vital Signs: Temp Pulse Resp BP Pulse Ox 37.0 C 76 13 101/60 92 09/26/17 23:12 09/26/17 23:12 09/26/17 23:12 09/26/17 23:12 09/26/17 23:12 Intake & Output 09/25/17 09/26/17 09/27/17 06:59 06:59 06:59 Intake Total 0 5250 2103 Output Total 3000 Balance 0 2250 2103 Weight 99.4 kg General appearance: PRESENT: no acute distress Head exam: PRESENT: normocephalic Respiratory exam: PRESENT: unlabored Cardiovascular exam: PRESENT: RRR Pulses: PRESENT: +1 pedal pulses bilateral Vascular exam: PRESENT: normal capillary refill GI/Abdominal exam: PRESENT: soft Rectal exam: PRESENT: deferred Extremities exam: PRESENT: other - Left knee dressing clean dry and intact. There is minimal pedal edema. Distal neurovascular examination is intact. Neurological exam: PRESENT: alert, awake, oriented to person, oriented to place , oriented to time, oriented to situation. ABSENT: motor sensory deficit Psychiatric exam: PRESENT: appropriate affect, normal mood. ABSENT: homicidal ideation, suicidal ideation Skin exam: PRESENT: dry, intact, warm. ABSENT: cyanosis, rash Results Laboratory Results: 09/27/17 04:42 09/26/17 04:46 09/27/17 04:42 WBC 7.4 RBC 3.50 L Hgb 10.0 L Hct 28.7 L MCV 82 MCH 28.5 MCHC 34.8 RDW 16.3 H Plt Count 159 Impressions: Knee X-Ray 09/25/17 08:26 IMPRESSION: 1 Status post left total knee arthroplasty since the prior examination dated 05/03/2017. Status: Imported from PACS Qualifiers - * PATEINT BEING DISCHARGED WITH ANY OF THE FOLLOWING DIAGNOSIS?: No VTE patient discharged on overlapping Therapy?: Yes Plan Discharge Plan: Patient to be discharged home with home health nursing, home health physical therapy, wheeled walker, bedside commode. Follow-up with Dr. Urena and [facility] for surgery in 2 weeks for staple removal. Time Spent: Less than 30 Minutes
[2017-09-27 09:06] VITALS: BP 109/51
[2017-09-27] MEDS: FLUTICASONE NASAL SPRAY 50 MCG/SPRY 120 SPRAY/16 GM NASL SCH (09:29)
[2017-09-27] MEDS: ATENOLOL 50 MG TABLET PO SCH (09:29)
[2017-09-27] MEDS: ASPIRIN 81 MG TABLET, ENT COATED PO SCH (09:30)
[2017-09-27] MEDS: FUROSEMIDE 20 MG TABLET PO SCH (09:30)
[2017-09-27] MEDS: GABAPENTIN 300 MG CAPSULE PO SCH (09:30)
[2017-09-27] MEDS: SENNOSIDES/DOCUSATE 8.6-50 MG 1 EACH TABLET PO SCH (09:31)
[2017-09-27] MEDS: CITALOPRAM HYDROBROMIDE 20 MG TABLET PO SCH (09:31)
[2017-09-27] MEDS: POTASSIUM CHLORIDE 10 MEQ TABLET.SA PO SCH (09:31)
[2017-09-27] MEDS: PRENATAL VITAMIN W DHA CAPSULE PO SCH (09:31)
[2017-09-27] MEDS: BUPROPION HCL 100 MG TABLET PO SCH (10:07)
[2017-09-27] MEDS ORDERED: MAGNESIUM CITRATE 296 ML BOTTLE PO ONE (11:30)
== END 2017-09-27 11:35 | disposition home health service (06) | DRG 470 ==
LOC: INOR 05:25 → 4S 10:41
PROVIDERS: ADMIT Orthopaedic Surgery; ATTEND Orthopaedic Surgery
PROC: 0SRD0J9 Replacement of Left Knee Joint with Synthetic Substitute, Cemented, Open Approach (ICD-10-PCS; principal; 2017-09-25 07:30)
DX: M17.12 Unilateral primary osteoarthritis, left knee (principal); G47.33 Obstructive sleep apnea (adult) (pediatric); I10 Essential (primary) hypertension; K21.9 Gastro-esophageal reflux disease without esophagitis; Z79.899 Other long term (current) drug therapy; Z98.84 Bariatric surgery status
CPT/HCPCS: 01402; 36415; 80048; 84132; 85027; 88305; 88311; 94799; C2625; C9290; G8978-GP; G8979-GP; G8987-GO; G8988-GO; J0131; J0690; J1100; J1741; J2250; J2370; J2405; J2704; J3010; J3370; J3490; J7050; J7060

== ENCOUNTER 2018-01-23 12:36 | Observation (INO) | payer OTHER, MEDICARE ==
--- NOTE | 2018-01-23 12:44 | ER Document Report ---
ED Medical Screen (RME) - General Chief Complaint: Chest Pain > 30 Stated Complaint: CHEST PAINS, FACIAL DROOPING Time Seen by Provider: 01/23/18 12:41 Notes: The patient is a 67-year-old female who presents with 1 day of intermittent anterior chest pressure [place] the [place]. Her daughter also noticed that she had a right-sided facial droop that started yesterday. Patient denies neck pain, arm or leg weakness or numbness. PE: Right-sided facial droop, able to wrinkle forehead B/L, 5/5 strength and sensation intact in all 4 extremitiesm RRR, Lungs CTAB. I have greeted and performed a rapid initial assessment of this patient. A comprehensive ED assessment and evaluation of the patient, analysis of test results and completion of the medical decision making process will be conducted by additional ED providers. TRAVEL OUTSIDE OF THE [place] IN LAST 30 DAYS: No - Related Data Allergies/Adverse Reactions: Sulfa (Sulfonamide Antibiotics) Allergy (Severe, Verified 09/25/17 05:46) Anaphylaxis hydrocodone [From Vicodin] Allergy (Mild, Verified 09/25/17 05:46) ITCHING Past Medical History - Past Medical History Cardiac Medical History: Denies: Hx Atrial Fibrillation, Hx Congestive Heart Failure, Hx Coronary Artery Disease, Hx Heart Attack, Hx Hypercholesterolemia, Hx Hypertension, Hx Peripheral Vascular Disease, Hx Pulmonary Embolism, Hx Heart Murmur Pulmonary Medical History: Reports: Hx Pneumonia - HX, Hx Sleep Apnea - CPAP Denies: Hx Asthma, Hx Bronchitis, Hx COPD, Hx Respiratory Failure, Hx Tuberculosis Neurological Medical History: Denies: Hx Cerebrovascular Accident, Hx Seizures Endocrine Medical History: Reports: Hx Hypothyroidism. Denies: Hx Graves' Disease, Hx Hyperthyroidism Renal/ Medical History: Reports: Hx Kidney Stones. Denies: Hx End Stage Renal Disease, Hx Ovarian Cysts, Hx Peritoneal Dialysis, Hx Pelvic Inflammatory Disease Malignancy Medical History: Reports: Hx Breast Cancer - left. Denies: Hx Cervical Cancer, Hx Lung Cancer, Hx Ovarian Cancer GI Medical History: Reports: Hx Gastroesophageal Reflux Disease. Denies: Hx Crohn's Disease, Hx Hiatal Hernia, Hx Irritable Bowel, Hx Liver Failure, Hx Pancreatitis, Hx Ulcer Musculoskeltal Medical History: Reports Hx Arthritis, Denies Hx Fibromyalgia, Denies Hx Multiple Sclerosis, Denies Hx Muscular Dystrophy Psychiatric Medical History: Reports: Hx Depression Denies: Hx Bipolar Disorder, Hx Dementia, Hx Post Traumatic Stress Disorder, Hx Schizophrenia Traumatic Medical History: Denies: Hx Fractures Past Surgical History: Reports: Hx Breast Surgery - cancer, Hx Section , Hx Cholecystectomy, Hx Gastric Bypass Surgery, Hx Hysterectomy, Hx Orthopedic Surgery - hip replacement. Denies: Hx Appendectomy, Hx Bowel Surgery, Hx Colostomy, Hx Coronary Artery Bypass Graft, Hx Herniorrhaphy, Hx Mastectomy, Hx Pacemaker, Hx Tonsillectomy, Hx Tubal Ligation - Immunizations Hx Diphtheria, Pertussis, Tetanus Vaccination: - UNSURE WHEN LAST ONE History of Influenza Vaccine for 04/2017 - 09/2017 Season: Yes Influenza Administration Date for 04/2017 - 09/2017 Season: 04/16/17 Doctor's Discharge - Discharge Referrals: KRISTYN BROWN PA-C [Primary Care Provider] - Follow up as needed
--- NOTE | 2018-01-23 13:57 | RADIOLOGY REPORT (SQ) ---
EXAM DESCRIPTION: CHEST SINGLE VIEW COMPLETED DATE/TIME: 01/23/2018 1:45 pm REASON FOR STUDY: chest pain COMPARISON: Chest film 09/05/2017, 06/19/2017 EXAM PARAMETERS: NUMBER OF VIEWS: One view. TECHNIQUE: Single frontal radiographic view of the chest acquired. RADIATION DOSE: NA LIMITATIONS: None. FINDINGS: LUNGS AND PLEURA: No opacities, masses or pneumothorax. No pleural effusion. MEDIASTINUM AND HILAR STRUCTURES: No masses. Contour normal. HEART AND VASCULAR STRUCTURES: Heart normal in size. Normal vasculature. BONES: No acute findings. HARDWARE: Surgical clips left breast, and in the upper abdomen along the GE junction region. OTHER: No other significant finding. IMPRESSION: NO ACUTE RADIOGRAPHIC FINDING IN THE CHEST. TECHNICAL DOCUMENTATION: JOB ID: [id number] [email or web address]- All Rights Reserved Reading location - IP/workstation name: [email or web address]
--- NOTE | 2018-01-23 13:59 | RADIOLOGY REPORT (SQ) ---
EXAM DESCRIPTION: CT HEAD WITHOUT COMPLETED DATE/TIME: 01/23/2018 1:51 pm REASON FOR STUDY: right-sided facial droop, able to wrinkle forehead COMPARISON: None. TECHNIQUE: Axial images acquired through the brain without intravenous contrast. Images reviewed wi th bone, brain and subdural windows. Additional sagittal and coronal reconstructions were generated. Images stored on PACS. All CT scanners at this facility use dose modulation, iterative reconstruction, and/or weight based d osing when appropriate to reduce radiation dose to as low as reasonably achievable (ALARA). [facility]: Dose Right [facility]: CareDose [facility]: Dose Right [facility]: Teradose 4D [facility]: [place] RADIATION DOSE: CT Rad equipment meets quality standard of care and radiation dose reduction techniq ues were employed. CTDIvol: 53.2 mGy. DLP: 1017 mGy-cm. mGy. LIMITATIONS: None. FINDINGS: VENTRICLES: Normal size and contour. CEREBRUM: No masses. No hemorrhage. No midline shift. No evidence for acute infarction. Normal gra y/white matter differentiation. No areas of low density in the white matter. CEREBELLUM: No masses. No hemorrhage. No alteration of density. No evidence for acute infarction. EXTRAAXIAL SPACES: No fluid collections. No masses. ORBITS AND GLOBE: No intra- or extraconal masses. Normal contour of globe without masses. CALVARIUM: No fracture. PARANASAL SINUSES: No fluid or mucosal thickening. SOFT TISSUES: No mass or hematoma. OTHER: No other significant finding. IMPRESSION: NORMAL BRAIN CT WITHOUT CONTRAST. EVIDENCE OF ACUTE STROKE: NO. COMMENT: Quality ID # [id number]: Final reports with documentation of one or more dose reduction techniques (e.g., Automated exposure control, adjustment of the mA and/or kV according to patient size, use of iterative reconstruction technique) TECHNICAL DOCUMENTATION: JOB ID: [id number] [employer]- All Rights Reserved Reading location - IP/workstation name: [email or web address]
[2018-01-23 15:52] LABS: ABSOLUTE BASOPHILS # (AUTO) 0.1 10^3/uL (0.0-0.2); ABSOLUTE EOSINOPHILS # (AUTO) 0.2 10^3/uL (0.0-0.6); ABSOLUTE LYMPHOCYTES (AUTO) 1.3 10^3/uL (0.5-4.7); ABSOLUTE MONOCYTES (AUTO) 0.6 10^3/uL (0.1-1.4); BASOPHILS % (AUTO) 1.1 % (0-2); EOSINOPHILS % (AUTO) 3.7 % (0-6); HEMATOCRIT 37.7 % (36.0-47.0); HEMOGLOBIN 12.8 g/dL (12.0-15.5); MEAN CORPUSCULAR HEMOGLOBIN 28.4 pg (27.0-33.4); MEAN CORPUSCULAR HGB CONC 34.1 g/dL (32.0-36.0); MEAN CORPUSCULAR VOLUME 83 fl (80-97); MONOCYTES % (AUTO) 11.5 % (3-13); PLATELET COUNT 218 10^3/uL (150-450); RED BLOOD COUNT 4.53 10^6/uL (3.72-5.28); RED CELL DISTRIBUTION WIDTH 14.8 % (11.5-14.0); SEGMENTED NEUTROPHILS % (AUTO) 57.7 % (42-78); TOTAL CELLS COUNTED % (AUTO) 100 %; WHITE BLOOD COUNT 5.2 10^3/uL (4.0-10.5)
[2018-01-23 15:54] LABS: TROPONIN I < 0.012 ng/mL
[2018-01-23 15:56] LABS: ALANINE AMINOTRANSFERASE 35 U/L (9-52); ALBUMIN 3.8 g/dL (3.5-5.0); ALKALINE PHOSPHATASE 90 U/L (38-126); ANION GAP 9 (5-19); ASPARTATE AMINO TRANSFERASE 25 U/L (14-36); BILIRUBIN,DIRECT 0.4 mg/dL (0.0-0.4); BILIRUBIN,TOTAL 0.4 mg/dL (0.2-1.3); BLOOD UREA NITROGEN 19 mg/dL (7-20); CALCIUM 8.8 mg/dL (8.4-10.2); CARBON DIOXIDE 27 mmol/L (22-30); CHLORIDE 108 mmol/L (98-107); CREATINE KINASE 64 U/L (30-135); GLUCOSE 82 mg/dL (75-110); POTASSIUM 4.4 mmol/L (3.6-5.0); SODIUM 144.3 mmol/L (137-145); TOTAL PROTEIN 6.3 g/dL (6.3-8.2)
[2018-01-23 16:05] LABS: CREATINE KINASE MB 0.86 ng/mL (<4.55)
--- NOTE | 2018-01-23 16:12 | ER Document Report ---
ED Cardiac - General Mode of Arrival: Ambulatory Information source: Patient TRAVEL OUTSIDE OF THE [place] IN LAST 30 DAYS: No - Related Data Home Medications: escitalopram, bupropion, diliazem, omeprazole. lasix, K+, flonase, saline spray, bisopriolol, levothyroxine, gabapentin, meloxicam, trazadone, atenolol. <МАРИЯ RAM - Last Filed: 01/23/18 19:21> <JENNIFER MILLER - Last Filed: 01/23/18 19:22> - General Chief Complaint: Chest Pain > 30 Stated Complaint: CHEST PAINS, FACIAL DROOPING Time Seen by Provider: 01/23/18 12:41 Notes: 67 y.o female with PAT, osteoarthritis with LT knee surgery in September 2017 and a PMHx of breast cancer for which she had a lumpectomy to her LT breast and LUE lymph node removal leaving her LUE restricted 14 years ago. Patient presents to the ED with CP of onset yesterday when she was swimming in the ocean. Pt reports that with the onset of CP, she started to feel very tired and felt as if her arms were heavy, not being able to swim with either of her arms but could kick with her legs. Pt reports that on the way home from the beach her daughter noticed that her RT eye was drooping but the droop had relieved by the evening. She states that she noticed her eye droop reoccurred earlier today so she called her cardiologists office who referred her here because they though she might have had a minor stroke but could not confirm this without any testing. Pt denies taking any blood thinners daily, including Aspirin. Pt reports her PCP is Dr. Krishna Matute and information management specialist is Dr. Núñez. Pt denies any hx of HTN , HLD or DM. (МАРИЯ RAM) - Related Data Allergies/Adverse Reactions: Sulfa (Sulfonamide Antibiotics) Allergy (Severe, Verified 01/23/18 12:44) Anaphylaxis hydrocodone [From Vicodin] Allergy (Mild, Verified 01/23/18 12:44) ITCHING Past Medical History - General Information source: Patient - Social History Smoking Status: Never Smoker Chew tobacco use (# tins/day): No Frequency of alcohol use: Rare Drug Abuse: None Family History: Reviewed & Not Pertinent Patient has suicidal ideation: No Patient has homicidal ideation: No - Past Medical History Cardiac Medical History: Reports: Other - PAT Pulmonary Medical History: Reports: Hx Pneumonia - HX, Hx Sleep Apnea - CPAP Endocrine Medical History: Reports: Hx Hypothyroidism Renal/ Medical History: Reports: Hx Kidney Stones Malignancy Medical History: Reports: Hx Breast Cancer - left GI Medical History: Reports: Hx Gastroesophageal Reflux Disease Musculoskeltal Medical History: Reports Hx Arthritis Psychiatric Medical History: Reports: Hx Depression Past Surgical History: Reports: Hx Abdominal Surgery - Gastric bypass, Hx Breast Surgery - cancer, Hx Section, Hx Cholecystectomy, Hx Gastric Bypass Surgery, Hx Hysterectomy, Hx Orthopedic Surgery - Bilat knees; bilat carpal tunnel; Rt rotator cuff; Rt hip; Rt toe; Lt foot, Hx Thyroid Surgery - removal - Immunizations Hx Diphtheria, Pertussis, Tetanus Vaccination: - UNSURE WHEN LAST ONE Hx Pneumococcal Vaccination: 04/16/17 <МАРИЯ RAM - Last Filed: 01/23/18 19:21> Review of Systems - Review of Systems Constitutional: See HPI, Weakness - to bilateral upper extremities, Other - tired EENT: No symptoms reported Cardiovascular: See HPI, Chest pain Respiratory: No symptoms reported Gastrointestinal: No symptoms reported Genitourinary: No symptoms reported Female Genitourinary: No symptoms reported Musculoskeletal: No symptoms reported Skin: No symptoms reported Hematologic/Lymphatic: No symptoms reported Neurological/Psychological: Other - Eye droop -: Yes All other systems reviewed and negative <МАРИЯ RAM - Last Filed: 01/23/18 19:21> Physical Exam <МАРИЯ RAM - Last Filed: 01/23/18 19:21> <JENNIFER MILLER - Last Filed: 01/23/18 19:22> - Vital signs Vitals: Temp Pulse Resp BP Pulse Ox 97.7 F 58 L 16 110/65 98 01/23/18 12:49 01/23/18 12:49 01/23/18 12:49 01/23/18 12:49 01/23/18 12:49 - Notes Notes: PHYSICAL EXAM GENERAL: Alert, interacts well. No acute distress. HEAD: Normocephalic, atraumatic. EYES: Pupils equal, round, and reactive to light. Extraocular movements intact. ENT: Oral mucosa moist, tongue midline. NECK: Full range of motion. Supple. Trachea midline. LUNGS: Clear to auscultation bilaterally, no wheezes, rales, or rhonchi. No respiratory distress. HEART: Regular rate and rhythm. No murmurs, gallops, or rubs. Trace pitting edema to bilateral lower extremities. ABDOMEN: Soft, non-tender. Non-distended. Bowel sounds present in all 4 quadrants. No guarding, rebound, or rigidity. EXTREMITIES: Moves all 4 extremities spontaneously. Radial and dorsalis pedis pulses 2/4 bilaterally. No cyanosis. NEUROLOGICAL: Alert and oriented x3. Normal speech. Biceps and patellar DTRs 2+ bilaterally. Slight RT sided facial droop, droop to RT eye and RT corner of mouth. Forehead is spared, she is able to wrinkle her forehead evenly. PSYCH: Normal affect, normal mood. SKIN: Warm, dry, normal turgor. No rashes or lesions noted. (МАРИЯ RAM) Course - Laboratory Result Diagrams: 01/23/18 15:07 01/23/18 15:07 <МАРИЯ RAM - Last Filed: 01/23/18 19:21> - Laboratory Result Diagrams: 01/23/18 15:07 01/23/18 15:07 <JENNIFER MILLER - Last Filed: 01/23/18 19:22> - Re-evaluation Re-evalutation: 01/23/18 17:39 CBC unremarkable, CMP unremarkable, cardiac enzymes negative, CT scan of the head reveals no acute process, chest x-ray reveals no acute process. Patient is out of timeframe for TPA. Her symptoms onset yesterday. NIH stroke scale is 1. She does have sparing of her forehead which points against Harry's palsy being the etiology for this facial weakness as well as the rapid improvement of the right-sided facial droop. Patient appears to have had a very small stroke. Patient will be admitted to the hospitalist service. They were discussed with Dr. Madrid. Patient has been given aspirin. 01/23/18 19:22 Exact last time known normal is not known. It was approximately sometime in the afternoon of 01/22/2018. (JENNIFER MILLER) - Vital Signs Vital signs: Temp Pulse Resp BP Pulse Ox 97.7 F 58 L 18 108/64 95 01/23/18 12:49 07/10/18 12:49 01/23/18 16:01 01/23/18 16:01 01/23/18 16:01 - Laboratory Laboratory results interpreted by me: 01/23/18 01/23/18 15:07 15:07 RDW 14.8 H Chloride 108 H - EKG Interpretation by Me Additional EKG results interpreted by me: 01/23/18 17:38 EKG shows sinus rhythm rate 70, left axis deviation, interventricular conduction delay, no ST segment patient's or depressions, there are T-wave inversions noted in lead III, aVF, V1 through V5 per my interpretation. (JENNIFER MILLER) Discharge <МАРИЯ RAM - Last Filed: 01/23/18 19:21> - Discharge Admitting Provider: Hospitalist - [facility] Admitted: Telemetry <JENNIFER MILLER - Last Filed: 01/23/18 19:22> - Discharge Clinical Impression: Stroke Qualifiers: CVA mechanism: unspecified Qualified Code(s): I63.9 - Cerebral infarction, unspecified Condition: Fair Disposition: ADMITTED INPATIENT Scribe Attestation: 01/23/18 19:22 I personally performed the services described in the documentation, reviewed and edited the documentation which was dictated to the scribe in my presence, and it accurately records my words and actions. (JENNIFER MILLER) Scribe Documentation - Scribe Written by Geronimo:: Geronimo Mensah 01/23/18 1620 acting as scribe for :: Chantelle <МАРИЯ RAM - Last Filed: 01/23/18 19:21>
[2018-01-23] MEDS ORDERED: ASPIRIN 325 MG TABLET PO ONE (16:36)
[2018-01-23] MEDS ORDERED: ACETAMINOPHEN 325 MG TABLET PO PRN (17:33)
[2018-01-23] MEDS ORDERED: ONDANSETRON HCL INJ/PF 4 MG/2 ML SDV IV PRN (17:33)
--- NOTE | 2018-01-23 18:42 | PDOC H&P ---
History of Present Illness Admission Date/PCP: 01/23/18 17:21 DIAMOND TORRES MD Patient complains of: Patient presents emergency room with complaints of right facial droop started while she was swimming at the beach yesterday History of Present Illness: MARIA DEL CARMEN RAMSEY is a 67 year old female Patient presents emergency room with complaints of right facial droop started while she was swimming at the beach yesterday. She felt times with heavy and she currently swim any strokes although she does have a history of left upper extremity restriction of movement from a lumpectomy done in 2003. Right eye was noted to be ectropion pushes it is somewhat improved and was resolved last evening however she noticed it to record again today and so came to the emergency room for further evaluation. There are no other deficits noted. She denies slurred speech or confusion O upper extremity weakness or blurry vision or any other pertinent symptoms. At this time she feels that the symptoms have also improved today. She denies any prior history of CVA or atrial fibrillation although gives history of paroxysmal atrial tachycardia. Also found to be the droopy right upper eyelid when she arrived in the emergency room otherwise, I saw her she felt was better Past Medical History Cardiac Medical History: Reports: Other - PAT Denies: Atrial Fibrillation, Congestive Heart Failure, Coronary Artery Disease, Myocardial Infarction, Hyperlipidema, Hypertension, Peripheral Vascular Disease, Pulmonary Embolism, Heart Murmur Pulmonary Medical History: Reports: Pneumonia - HX, Sleep Apnea - CPAP Denies: Asthma, Bronchitis, Chronic Obstructive Pulmonary Disease (COPD), Respiratory Failure, Tuberculosis Neurological Medical History: Denies: Seizures Endocrine Medical History: Reports: Hypothyroidism Denies: Hyperthyroidism Renal/ Medical History: Denies: End Stage Renal Disease Malignancy Medical History: Reports: Breast Cancer - left Denies: Cervical Cancer, Lung Cancer, Ovarian Cancer GI Medical History: Reports: Gastroesophageal Reflux Disease Denies: Crohn's Disease, Hiatal Hernia Musculoskeltal Medical History: Reports: Arthritis Denies: Fibromyalgia Psychiatric Medical History: Reports: Depression Denies: Bipolar Disorder, Dementia, Post Traumatic Stress Disorder Hematology: Denies: Anemia Past Surgical History Past Surgical History: Reports: Section, Cholecystectomy, Gastric Bypass Surgery, Hysterectomy, Orthopedic Surgery - Bilat knees; bilat carpal tunnel; Rt rotator cuff; Rt hip; Rt toe; Lt foot, Other - Lumpectomy Denies: Amputation, Appendectomy, Colostomy, Coronary Artery Bypass Graft, Herniorrhaphy, Mastectomy, Pacemaker, Tonsillectomy, Tubal Ligation Social History Information Source: Patient Smoking Status: Never Smoker Frequency of Alcohol Use: None Hx Recreational Drug Use: No Drugs: None Hx Prescription Drug Abuse: No - Advance Directive Resuscitation Status: Full Code Family History Family History: Reviewed & Not Pertinent Parental Family History Reviewed: Yes Children Family History Reviewed: Yes Sibling(s) Family History Reviewed.: Yes Medication/Allergy Home Medications: Atenolol [Tenormin] 25 mg PO Q12 09/11/17 Bupropion HCl 100 mg PO DAILY 09/11/17 Citalopram Hydrobromide [Citalopram HBr] 20 mg PO DAILY 09/11/17 Furosemide 40 tab PO DAILY 09/11/17 Gabapentin 300 mg PO QHS 09/11/17 Levothyroxine Sodium 125 mcg PO Q6AM 09/11/17 Meloxicam 15 mg PO QHS 09/11/17 Omeprazole 20 mg PO Q6AM 09/11/17 Potassium Chloride 20 meq PO DAILY 09/11/17 Sodium Chloride [Saline Nasal [place]] 2 sprays IH DAILY 09/11/17 Fluticasone Propionate [Flonase Nasal [place] 50 Mcg/[place] 16 gm] 2 spray NASL DAILY 09/25/17 Aspirin [Ecotrin 81 mg EC Tablet] 81 mg PO DAILY tabec 09/27/17 Oxycodone HCl [Oxy-Ir 5 mg Tablet] 5 mg PO Q6HP PRN tablet 09/27/17 Allergies/Adverse Reactions: Sulfa (Sulfonamide Antibiotics) Allergy (Severe, Verified 01/23/18 12:44) Anaphylaxis hydrocodone [From Vicodin] Allergy (Mild, Verified 01/23/18 12:44) ITCHING Review of Systems All systems: reviewed and no additional remarkable complaints except as stated Physical Exam Vital Signs: Temp Pulse Resp BP Pulse Ox 97.7 F 58 L 18 108/64 95 01/23/18 12:49 01/23/18 12:49 01/23/18 16:01 01/23/18 16:01 01/23/18 16:01 General appearance: PRESENT: no acute distress, obese, well-developed, well- nourished Head exam: PRESENT: atraumatic, normocephalic Eye exam: PRESENT: conjunctiva pink, EOMI, PERRLA, other - Minimal right facial droop. ABSENT: scleral icterus Ear exam: PRESENT: normal external ear exam Mouth exam: PRESENT: moist, tongue midline Neck exam: ABSENT: carotid bruit, JVD, lymphadenopathy, thyromegaly Respiratory exam: PRESENT: clear to auscultation erica. ABSENT: rales, rhonchi, wheezes Cardiovascular exam: PRESENT: RRR, +S1, +S2. ABSENT: diastolic murmur, rubs, systolic murmur Pulses: PRESENT: normal dorsalis pedis pul Vascular exam: PRESENT: normal capillary refill GI/Abdominal exam: PRESENT: normal bowel sounds, soft. ABSENT: distended, guarding, mass, organolmegaly, rebound, tenderness Rectal exam: PRESENT: deferred Extremities exam: PRESENT: full ROM, pedal edema, +2 edema. ABSENT: calf tenderness, clubbing Neurological exam: PRESENT: alert, awake, oriented to person, oriented to place , oriented to time, oriented to situation, CN II-XII grossly intact. ABSENT: motor sensory deficit Psychiatric exam: PRESENT: appropriate affect, normal mood. ABSENT: homicidal ideation, suicidal ideation Skin exam: PRESENT: dry, intact, warm. ABSENT: cyanosis, rash Results Laboratory Results: 01/23/18 15:07 01/23/18 15:07 MCV 83 fl (80-97) 01/23/18 15:07 MCH 28.4 pg (27.0-33.4) 01/23/18 15:07 MCHC 34.1 g/dL (32.0-36.0) 01/23/18 15:07 RDW 14.8 % (11.5-14.0) H 01/23/18 15:07 Seg Neutrophils % 57.7 % (42-78) 01/23/18 15:07 Lymphocytes % 26.0 % (13-45) 01/23/18 15:07 Monocytes % 11.5 % (3-13) 01/23/18 15:07 Eosinophils % 3.7 % (0-6) 01/23/18 15:07 Basophils % 1.1 % (0-2) 01/23/18 15:07 Absolute Neutrophils 3.0 10^3/uL (1.7-8.2) 01/23/18 15:07 Absolute Lymphocytes 1.3 10^3/uL (0.5-4.7) 01/23/18 15:07 Absolute Monocytes 0.6 10^3/uL (0.1-1.4) 01/23/18 15:07 Absolute Eosinophils 0.2 10^3/uL (0.0-0.6) 01/23/18 15:07 Absolute Basophils 0.1 10^3/uL (0.0-0.2) 01/23/18 15:07 Chloride 108 mmol/L (98-107) H 01/23/18 15:07 Carbon Dioxide 27 mmol/L (22-30) 01/23/18 15:07 Anion Gap 9 (5-19) 01/23/18 15:07 Est GFR ( Amer) > 60 (>60) 01/23/18 15:07 Est GFR (Non-Af Amer) > 60 (>60) 01/23/18 15:07 Glucose 82 mg/dL (75-110) 01/23/18 15:07 Calcium 8.8 mg/dL (8.4-10.2) 01/23/18 15:07 Total Bilirubin 0.4 mg/dL (0.2-1.3) 01/23/18 15:07 AST 25 U/L (14-36) 01/23/18 15:07 ALT 35 U/L (9-52) 01/23/18 15:07 Alkaline Phosphatase 90 U/L (38-126) 01/23/18 15:07 Total Protein 6.3 g/dL (6.3-8.2) 01/23/18 15:07 Albumin 3.8 g/dL (3.5-5.0) 01/23/18 15:07 01/23/18 01/23/18 15:07 15:07 Creatine Kinase 64 CK-MB (CK-2) 0.86 Troponin I < 0.012 Impressions: Chest X-Ray 01/23/18 12:42 IMPRESSION: NO ACUTE RADIOGRAPHIC FINDING IN THE CHEST. Head CT 01/23/18 12:42 IMPRESSION: NORMAL BRAIN CT WITHOUT CONTRAST. EVIDENCE OF ACUTE STROKE: NO. Assessment & Plan - Diagnosis (1) CVA (cerebral vascular accident) Qualifiers: Laterality of affected vessel: unspecified Is this a current diagnosis for this admission?: Yes Plan: This is a tentative diagnosis. CT scan shows no significant findings. MRI is pending and I will also obtain an MRA. She said she has had echocardiogram and Doppler done within the last 3 months and I will try and obtain this is results from Dr. Núñez's office - Time Time Spent: 30 to 50 Minutes Medications reviewed and adjusted accordingly: Yes Anticipated discharge: Home Within: within 24 hours - Inpatient Certification Based on my medical assessment, after consideration of the patient's comorbidities, presenting symptoms, or acuity I expect that the services needed warrant INPATIENT care.: Yes Medical Necessity: Need Close Monitoring Due to Risk of Patient Decompensation, Risk of Diagnosis Which Will Require Inpatient Eval/Care/Monitoring
[2018-01-23] MEDS ORDERED: ENOXAPARIN SODIUM INJ 40 MG/0.4 ML DISP.SYRIN SUBCUT ONE ×2 (19:00→23:00)
--- NOTE | 2018-01-23 20:34 | RADIOLOGY REPORT (SQ) ---
EXAM DESCRIPTION: MRA HEAD WITHOUT COMPLETED DATE/TIME: 01/23/2018 7:39 pm REASON FOR STUDY: TIA COMPARISON: None. TECHNIQUE: Axial 3-D [id number] acquisition imaging performed through the brain in the area of t he upper [place] of [place]. Images reformatted using 3-D MIPS. LIMITATIONS: None. FINDINGS: SOURCE IMAGES: No unexpected findings on source images. No large masses. 3-D MIP: No aneurysm. No occlusions. No significant stenosis. OTHER: No other significant finding. IMPRESSION: NORMAL MRA OF THE [place] OF [place]. TECHNICAL DOCUMENTATION: JOB ID: [id number] [employer]- All Rights Reserved Reading location - IP/workstation name: [email or web address]
--- NOTE | 2018-01-23 20:38 | RADIOLOGY REPORT (SQ) ---
EXAM DESCRIPTION: MRI HEAD WITHOUT COMPLETED DATE/TIME: 01/23/2018 7:39 pm REASON FOR STUDY: Facial droop COMPARISON: CT 01/23/2018 TECHNIQUE: Multiplanar imaging includes non-contrasted T1, T2, FLAIR, and diffusion with ADC map seq uences. Images stored on PACS. LIMITATIONS: None. FINDINGS: ANATOMY: No anomalies. Normal vascular flow voids. Pituitary fossa normal. CSF SPACES: Normal in size and contour. No hemorrhage. CEREBRUM: Sulci and gyri normal in size and contour. Normal white matter signal on FLAIR imaging. No evidence of hemorrhage, mass, or extraaxial fluid collection. POSTERIOR FOSSA: No signal alteration. No hemorrhage. No edema, masses or mass effect. Internal eli tory canals, cerebello-pontine angles, mastoids normal. DIFFUSION IMAGING: Negative for acute or sub-acute infarction. ORBITS: No masses. Globes normal. PARANASAL SINUSES: No fluid levels. Mucosa normal. OTHER: No other significant finding. IMPRESSION: NORMAL MRI OF THE BRAIN WITHOUT INTRAVENOUS GADOLINIUM CONTRAST. EVIDENCE OF ACUTE STROKE: NO. TECHNICAL DOCUMENTATION: JOB ID: [id number]- All Rights Reserved Reading location - IP/workstation name: [email or web address]
--- NOTE | 2018-01-23 20:44 | EKG REPORT ---
SEVERITY:- ABNORMAL ECG - SINUS RHYTHM NONSPECIFIC T ABNORMALITIES, DIFFUSE LEADS : Confirmed by: Brenda Santacruz MD 23-Jan-2018 20:43:43
[2018-01-23] MEDS ORDERED: ATORVASTATIN CALCIUM 20 MG TABLET PO SCH (22:00)
[2018-01-23] MEDS ORDERED: GABAPENTIN 300 MG CAPSULE PO SCH (22:00)
[2018-01-23] MEDS ORDERED: (PENDING PHARMACY ID) (Atenolol [Tenormin] 25 MG) PO SCH (22:00)
[2018-01-23] MEDS ORDERED: LEVOTHYROXINE SODIUM 0.1 MG TABLET PO ONE (23:00)
[2018-01-23] MEDS ORDERED: DILTIAZEM HCL 120 MG CAP.SR.24H PO ONE (23:00)
[2018-01-23] MEDS ORDERED: ATENOLOL 50 MG TABLET ONE (23:07)
[2018-01-23] MEDS ORDERED: LEVOTHYROXINE SODIUM 0.025 MG TABLET PO ONE (23:15)
[2018-01-23] MEDS: ATENOLOL 50 MG TABLET PO SCH (23:25)
[2018-01-24] MEDS ORDERED: LANSOPRAZOLE 15 MG TAB.RAP.DR PO SCH (06:00)
[2018-01-24] MEDS ORDERED: (PENDING PHARMACY ID) (Levothyroxine Sodium [Levothyroxine Sodium] 125 MCG) PO SCH (06:00)
[2018-01-24 06:20] LABS: CHOLESTEROL 168.44 mg/dL (0-200); TRIGLYCERIDES 262 mg/dL (<150)
[2018-01-24 06:30] LABS: DIRECT LDL 90 mg/dL (<100)
[2018-01-24 06:35] LABS: VLDL CHOLESTEROL 52.4 mg/dL (10-31)
[2018-01-24] MEDS ORDERED: FLUTICASONE NASAL SPRAY 50 MCG/SPRY 120 SPRAY/16 GM NASL SCH (10:00)
[2018-01-24] MEDS ORDERED: ESCITALOPRAM OXALATE 10 MG TABLET PO SCH (10:00)
[2018-01-24] MEDS ORDERED: FUROSEMIDE 20 MG TABLET PO SCH (10:00)
[2018-01-24] MEDS ORDERED: ENOXAPARIN SODIUM INJ 40 MG/0.4 ML DISP.SYRIN SUBCUT SCH (10:00)
[2018-01-24] MEDS ORDERED: ASPIRIN 81 MG TABLET, ENT COATED PO SCH (10:00)
[2018-01-24] MEDS ORDERED: DILTIAZEM HCL 120 MG CAP.SR.24H PO SCH (10:00)
[2018-01-24] MEDS ORDERED: CITALOPRAM HYDROBROMIDE 20 MG TABLET PO SCH (10:00)
[2018-01-24] MEDS ORDERED: BUPROPION HCL 100 MG TABLET PO SCH (10:00)
[2018-01-24] MEDS: ATENOLOL 50 MG TABLET PO SCH (10:06)
--- NOTE | 2018-01-24 10:46 | PDOC DISCHARGE SUMMARY ---
General - Admit/Disc Date/PCP Admission Date/Primary Care Provider: 01/23/18 17:21 DIAMOND TORRES MD Discharge Date: 01/24/18 - Discharge Diagnosis (1) Hypertriglyceridemia without hypercholesterolemia Is this a current diagnosis for this admission?: Yes (2) TIA (transient ischemic attack) Is this a current diagnosis for this admission?: Yes Summary: Possible. Follow-up with Dr. Núñez for a 30 day event monitor is suggested. - Additional Information Resuscitation Status: Full Code Discharge Diet: Other (Comments) - Low cholesterol Discharge Activity: Activity As Tolerated Prescriptions: Atorvastatin Calcium [Lipitor 20 mg Tablet] 20 mg PO QHS #30 tablet Home Medications: Bisoprolol Fumarate [Zebeta 5 mg Tablet] 5 mg PO DAILY 01/23/18 Bupropion HCl [Bupropion HCl Sr] 100 mg PO DAILY 01/23/18 Calcium Carbonate/Vitamin D3 [Calcium 500+D Tablet Chew] 1 tab PO MEALS Cholecalciferol (Vitamin D3) [Vitamin D3] 1,000 unit PO MEALS 01/23/18 Diltiazem HCl [Diltiazem 12Hr ER] 120 mg PO Q12 01/23/18 Escitalopram Oxalate [Lexapro] 20 mg PO DAILY 01/23/18 Fluticasone Propionate [Flonase Nasal [place] 50 Mcg/[place] 16 gm] 2 spray NASL DAILY 01/23/18 Furosemide [Lasix 20 mg Tablet] 40 mg PO DAILY 01/23/18 Gabapentin [Neurontin 300 mg Capsule] 300 mg PO QHS 01/23/18 Levothyroxine Sodium [Synthroid] 125 mcg PO Q6AM 01/23/18 Meloxicam [Mobic] 15 mg PO QHS 01/23/18 Multivitamin [Tab-A-Elizabeth (Multiple Vitamin) Tablet] 1 tab PO DAILY 01/23/18 Omeprazole 20 mg PO DAILY 01/23/18 Potassium Chloride [Klor-Con M10] 20 meq PO DAILY 01/23/18 Sodium Chloride [Saline Nasal [place]] 2 spray NASL DAILY 01/23/18 Trazodone HCl [Desyrel 50 mg Tablet] 50 mg PO QHS 01/23/18 Aspirin [Ecotrin 81 mg EC Tablet] 81 mg PO DAILY tabec 01/24/18 Atorvastatin Calcium [Lipitor 20 mg Tablet] 20 mg PO QHS #30 tablet 01/24/18 History of Present Illness History of Present Illness: MARIA DEL CARMEN RAMSEY is a 67 year old female Patient presents emergency room with complaints of right facial droop started while she was swimming at the beach yesterday. She felt times with heavy and she currently swim any strokes although she does have a history of left upper extremity restriction of movement from a lumpectomy done in 2003. Right eye was noted to be ectropion pushes it is somewhat improved and was resolved last evening however she noticed it to record again today and so came to the emergency room for further evaluation. There are no other deficits noted. She denies slurred speech or confusion O upper extremity weakness or blurry vision or any other pertinent symptoms. At this time she feels that the symptoms have also improved today. She denies any prior history of CVA or atrial fibrillation although gives history of paroxysmal atrial tachycardia. Also found to be the droopy right upper eyelid when she arrived in the emergency room otherwise, I saw her she felt was better Hospital Course Hospital Course: Patient was admitted with right facial droop which had basically resolved by the time I saw her. Please see history and physical for full details. She was kept in the hospital for another 24 hours for observation. Her symptoms never recurred. MRI of the brain as well as MRA have been done which completely negative for any acute findings. Recent echocardiogram that was done as outpatient and Dr. Núñez's office was reviewed and this showed 1-2+ mild mitral regurgitation but otherwise no significant findings. She had said she was told that she had paroxysmal atrial tachycardia other than any arrhythmias on telemetry monitoring she has been advised to follow-up with Dr. Núñez for Holter monitor. She was evaluated by physical therapy with no deficits noted. Her triglycerides were noted to be slightly elevated and patient was given information on low-cholesterol diet. She has been started on low-dose aspirin as well as low-dose statin and have advised her to follow-up with her primary care physician for evaluation and adjustment of these medications as needed. With no further interventions been planned and with hemodynamic stability patient is been discharged home for outpatient follow-up Acute CVA has been ruled out Physical Exam Vital Signs: Temp Pulse Resp BP Pulse Ox 97.6 F 59 L 19 109/64 95 01/24/18 07:53 01/24/18 08:00 01/24/18 08:00 01/24/18 08:00 01/24/18 08:00 Intake & Output 01/23/18 01/24/18 01/25/18 06:59 06:59 06:59 Intake Total 340 Output Total 400 Balance -60 Weight 95.6 kg General appearance: PRESENT: no acute distress, well-developed, well-nourished Head exam: PRESENT: atraumatic, normocephalic Eye exam: PRESENT: conjunctiva pink, EOMI, PERRLA. ABSENT: scleral icterus Ear exam: PRESENT: normal external ear exam Mouth exam: PRESENT: moist, tongue midline Neck exam: ABSENT: carotid bruit, JVD, lymphadenopathy, thyromegaly Respiratory exam: PRESENT: clear to auscultation erica. ABSENT: rales, rhonchi, wheezes Cardiovascular exam: PRESENT: RRR. ABSENT: diastolic murmur, rubs, systolic murmur Pulses: PRESENT: normal dorsalis pedis pul Vascular exam: PRESENT: normal capillary refill GI/Abdominal exam: PRESENT: normal bowel sounds, soft. ABSENT: distended, guarding, mass, organolmegaly, rebound, tenderness Rectal exam: PRESENT: deferred Extremities exam: PRESENT: full ROM. ABSENT: calf tenderness, clubbing, pedal edema Neurological exam: PRESENT: alert, awake, oriented to person, oriented to place , oriented to time, oriented to situation, CN II-XII grossly intact. ABSENT: motor sensory deficit Psychiatric exam: PRESENT: appropriate affect, normal mood. ABSENT: homicidal ideation, suicidal ideation Skin exam: PRESENT: dry, intact, warm. ABSENT: cyanosis, rash Results Laboratory Results: 01/24/18 05:34 Triglycerides 262 H Cholesterol 168.44 LDL Cholesterol Direct 90 VLDL Cholesterol 52.4 H HDL Cholesterol 38 L 01/23/18 01/24/18 20:05 05:34 Troponin I < 0.012 < 0.012 Impressions: Head MRI 01/23/18 00:00 IMPRESSION: NORMAL MRI OF THE BRAIN WITHOUT INTRAVENOUS GADOLINIUM CONTRAST. EVIDENCE OF ACUTE STROKE: NO. Chest X-Ray 01/23/18 12:42 IMPRESSION: NO ACUTE RADIOGRAPHIC FINDING IN THE CHEST. Head CT 01/23/18 12:42 IMPRESSION: NORMAL BRAIN CT WITHOUT CONTRAST. EVIDENCE OF ACUTE STROKE: NO. Brain MRI with MRA 01/23/18 17:37 IMPRESSION: NORMAL MRA OF THE [place]. Qualifiers - * PATIENT BEING DISCHARGED WITH ANY OF THE FOLLOWING DIAGNOSIS: No Plan Time Spent: Less than 30 Minutes
[2018-01-24 11:09] VITALS: BP 121/65
[2018-01-24] MEDS ORDERED: LEVOTHYROXINE SODIUM 0.025 MG TABLET PO SCH (22:00)
[2018-01-24] MEDS ORDERED: LEVOTHYROXINE SODIUM 0.1 MG TABLET PO SCH (22:00)
== END 2018-01-24 12:01 | disposition home or self-care (01) ==
LOC: ER 12:36 → EH 17:21 → INTOOBSV 17:21 → 3S 19:56
PROVIDERS: ADMIT Internal Medicine; ATTEND Internal Medicine
DX: G45.9 Transient cerebral ischemic attack, unspecified (principal); E78.1 Pure hyperglyceridemia; I34.0 Nonrheumatic mitral (valve) insufficiency; E03.9 Hypothyroidism, unspecified; R53.1 Weakness; R53.83 Other fatigue; R07.89 Other chest pain; K21.9 Gastro-esophageal reflux disease without esophagitis; Z85.3 Personal history of malignant neoplasm of breast; M19.90 Unspecified osteoarthritis, unspecified site; Z79.899 Other long term (current) drug therapy; Z90.49 Acquired absence of other specified parts of digestive tract; Z98.84 Bariatric surgery status
CPT/HCPCS: 93005; 99285; 36415 ×2; 82553; 82550; 85025; 80053; 84484 ×2; 80061; 70551; 70544; 71045; 70450; 93010; 97116; 97163; 97165; G0378 ×3; J1650 ×2; J3490 ×2; G8978; G8979; G8980

== ENCOUNTER 2018-02-13 12:24 | Inpatient (IN) | payer MEDICARE, OTHER ==
--- NOTE | 2018-02-13 12:41 | ER Document Report ---
ED General - General Stated Complaint: POSSIBLE STROKE Time Seen by Provider: 02/13/18 12:34 Mode of Arrival: Medic Information source: Patient, Emergency Med Personnel Notes: 67-year-old female who was diagnosed with a TIA 1 month prior presents with complaints of facial droop. Patient was going to be seen by her primary care for follow-up regarding her TIA while in the office she had sudden right facial droop. EMS was called by time EMS arrived her symptoms resolved. In route her symptoms worsened again and have resolved prior to CT TRAVEL OUTSIDE OF THE [place] IN LAST 30 DAYS: No - HPI Onset: Just prior to arrival Onset/Duration: Sudden Quality of pain: No pain Severity: Mild Pain Level: Denies Associated symptoms: Other Exacerbated by: Denies Relieved by: Denies Similar symptoms previously: Yes Recently seen / treated by doctor: Yes - Related Data Allergies/Adverse Reactions: Sulfa (Sulfonamide Antibiotics) Allergy (Severe, Verified 02/13/18 13:29) Anaphylaxis Past Medical History - Social History Smoking Status: Never Smoker Cigarette use (# per day): No Chew tobacco use (# tins/day): No Smoking Education Provided: No Family History: Reviewed & Not Pertinent - Past Medical History Cardiac Medical History: Denies: Hx Atrial Fibrillation, Hx Congestive Heart Failure, Hx Coronary Artery Disease, Hx Heart Attack, Hx Hypercholesterolemia, Hx Hypertension, Hx Peripheral Vascular Disease, Hx Pulmonary Embolism, Hx Heart Murmur Pulmonary Medical History: Reports: Hx Pneumonia - HX, Hx Sleep Apnea - CPAP Denies: Hx Asthma, Hx Bronchitis, Hx COPD, Hx Respiratory Failure, Hx Tuberculosis Neurological Medical History: Denies: Hx Cerebrovascular Accident, Hx Seizures Endocrine Medical History: Reports: Hx Hypothyroidism. Denies: Hx Graves' Disease, Hx Hyperthyroidism Renal/ Medical History: Reports: Hx Kidney Stones. Denies: Hx End Stage Renal Disease, Hx Ovarian Cysts, Hx Peritoneal Dialysis, Hx Pelvic Inflammatory Disease Malignancy Medical History: Reports: Hx Breast Cancer - left. Denies: Hx Cervical Cancer, Hx Lung Cancer, Hx Ovarian Cancer GI Medical History: Reports: Hx Gastroesophageal Reflux Disease. Denies: Hx Crohn's Disease, Hx Hiatal Hernia, Hx Irritable Bowel, Hx Liver Failure, Hx Pancreatitis, Hx Ulcer Musculoskeletal Medical History: Reports Hx Arthritis, Denies Hx Fibromyalgia, Denies Hx Multiple Sclerosis, Denies Hx Muscular Dystrophy Psychiatric Medical History: Reports: Hx Depression Denies: Hx Bipolar Disorder, Hx Dementia, Hx Post Traumatic Stress Disorder, Hx Schizophrenia Traumatic Medical History: Denies: Hx Fractures Past Surgical History: Reports: Hx Abdominal Surgery - Gastric bypass, Hx Breast Surgery - cancer, Hx Section, Hx Cholecystectomy, Hx Gastric Bypass Surgery, Hx Hysterectomy, Hx Orthopedic Surgery - Bilat knees; bilat carpal tunnel; Rt rotator cuff; Rt hip; Rt toe; Lt foot, Hx Thyroid Surgery - removal, Other - Lumpectomy. Denies: Hx Appendectomy, Hx Bowel Surgery, Hx Colostomy, Hx Coronary Artery Bypass Graft, Hx Herniorrhaphy, Hx Mastectomy, Hx Pacemaker, Hx Tonsillectomy, Hx Tubal Ligation - Immunizations Hx Diphtheria, Pertussis, Tetanus Vaccination: - UNSURE WHEN LAST ONE Hx Pneumococcal Vaccination: 04/16/17 Review of Systems - Review of Systems Notes: REVIEW OF SYSTEMS: CONSTITUTIONAL : Denies fever, chills, or sweats. Denies recent illness. EENT: Denies eye, ear, throat, or mouth pain or symptoms. Denies nasal or sinus congestion or discharge. Denies throat, tongue, or mouth swelling or difficulty swallowing. CARDIOVASCULAR: Denies chest pain. Denies palpitations or racing or irregular heart beat. Denies ankle edema. RESPIRATORY: Denies cough, cold, or chest congestion. Denies shortness of breath, difficulty breathing, or wheezing. GASTROINTESTINAL: Denies abdominal pain or distention. Denies nausea, vomiting , or diarrhea. Denies blood in vomitus, stools, or per rectum. Denies black, tarry stools. Denies constipation. GENITOURINARY: Denies difficulty urinating, painful urination, burning, frequency, blood in urine, or discharge. FEMALE GENITOURINARY: Denies vaginal bleeding, heavy or abnormal periods, irregular periods. Denies vaginal discharge or odor. MUSCULOSKELETAL: Denies back or neck pain or stiffness. Denies joint pain or swelling. SKIN: Denies rash, lesions or sores. HEMATOLOGIC : Denies easy bruising or bleeding. LYMPHATIC: Denies swollen, enlarged glands. NEUROLOGICAL: Intermittent right facial droop PSYCHIATRIC: Denies anxiety or stress. Denies depression, suicidal ideation, or homicidal ideation. ALL OTHER SYSTEMS REVIEWED AND NEGATIVE. PHYSICAL EXAMINATION: GENERAL: Well-appearing, well-nourished and in no acute distress. HEAD: Atraumatic, normocephalic. EYES: Pupils equal round and reactive to light, extraocular movements intact, conjunctiva are normal. ENT: Nares patent, oropharynx clear without exudates. Moist mucous membranes. NECK: Normal range of motion, supple without lymphadenopathy LUNGS: Breath sounds clear to auscultation bilaterally and equal. No wheezes rales or rhonchi. HEART: Regular rate and rhythm without murmurs ABDOMEN: Soft, nontender, nondistended abdomen. No guarding, no rebound. No masses appreciated. Female : deferred Musculoskeletal: Normal range of motion, no pitting or edema. No cyanosis. NEUROLOGICAL: Cranial nerves grossly intact. Normal speech, normal gait. Normal sensory, motor exams PSYCH: Normal mood, normal affect. SKIN: Warm, Dry, normal turgor, no rashes or lesions noted. Dictation was performed using [employer] voice recognition software Physical Exam - Vital signs Vitals: Pulse Resp BP Pulse Ox 58 L 18 102/77 92 02/13/18 12:30 02/13/18 12:30 02/13/18 12:30 02/13/18 12:30 Course - Re-evaluation Re-evalutation: 02/13/18 12:40 Currently the NIH score 0 however she does intermittently have significant facial paralysis, CT head CTA head neck has been ordered - Vital Signs Vital signs: Temp Pulse Resp BP Pulse Ox 58 L 17 104/64 94 02/13/18 12:30 02/13/18 13:01 02/13/18 13:00 02/13/18 13:16 - Laboratory Result Diagrams: 02/13/18 12:10 02/13/18 12:10 Laboratory results interpreted by me: 02/13/18 02/13/18 12:10 12:10 RDW 15.2 H BUN 22 H AST 40 H Discharge - Discharge Clinical Impression: TIA (transient ischemic attack) Condition: Stable Disposition: ADMITTED OBSERVATION Admitting Provider: Hospitalist Unit Admitted: IMCU Referrals: DIAMOND TORRES MD [Primary Care Provider] - Follow up as needed
--- NOTE | 2018-02-13 13:00 | RADIOLOGY REPORT (SQ) ---
EXAM DESCRIPTION: CT HEAD WITHOUT COMPLETED DATE/TIME: 02/13/2018 12:42 pm REASON FOR STUDY: Stroke-like symptoms COMPARISON: 01/23/2018 TECHNIQUE: Axial images acquired through the brain without intravenous contrast. Images reviewed wi th bone, brain and subdural windows. Additional sagittal and coronal reconstructions were generated. Images stored on PACS. All CT scanners at this facility use dose modulation, iterative reconstruction, and/or weight based d osing when appropriate to reduce radiation dose to as low as reasonably achievable (ALARA). [facility]: Dose Right [facility]: CareDose [facility]: Dose Right [facility]: Teradose 4D [facility]: [employer] RADIATION DOSE: CT Rad equipment meets quality standard of care and radiation dose reduction techniq ues were employed. CTDIvol: 53.2 mGy. DLP: 991 mGy-cm. mGy. LIMITATIONS: None. FINDINGS: VENTRICLES: Normal size and contour. CEREBRUM: No masses. No hemorrhage. No midline shift. No evidence for acute infarction. Normal gra y/white matter differentiation. No areas of low density in the white matter. CEREBELLUM: No masses. No hemorrhage. No alteration of density. No evidence for acute infarction. EXTRAAXIAL SPACES: No fluid collections. No masses. ORBITS AND GLOBE: No intra- or extraconal masses. Normal contour of globe without masses. CALVARIUM: No fracture. PARANASAL SINUSES: No fluid or mucosal thickening. SOFT TISSUES: No mass or hematoma. OTHER: No other significant finding. IMPRESSION: NORMAL BRAIN CT WITHOUT CONTRAST. EVIDENCE OF ACUTE STROKE: NO. COMMENT: Pertinent positive or negative findings of the imaging study reported as a CRITICAL EXAM sam PALENCIA MD at12:49 on 02/13/2018. Category of Critical Exam: Stroke alert Quality ID # [id number]: Final reports with documentation of one or more dose reduction techniques (e.g., Au tomated exposure control, adjustment of the mA and/or kV according to patient size, use of iterative reconstruction technique) TECHNICAL DOCUMENTATION: JOB ID: [id number] [employer]- All Rights Reserved Reading location - IP/workstation name: [email or web address]
[2018-02-13 13:02] LABS: INTERNATIONAL RATION (INR) 0.91; PROTHROMBIN TIME 12.7 SEC (11.4-15.4)
[2018-02-13 13:03] LABS: PARTIAL THROMBOPLASTIN TIME 31.7 SEC (23.5-35.8)
[2018-02-13 13:06] LABS: ABSOLUTE BASOPHILS # (AUTO) 0.1 10^3/uL (0.0-0.2); ABSOLUTE EOSINOPHILS # (AUTO) 0.2 10^3/uL (0.0-0.6); ABSOLUTE LYMPHOCYTES (AUTO) 1.2 10^3/uL (0.5-4.7); ABSOLUTE MONOCYTES (AUTO) 0.6 10^3/uL (0.1-1.4); ABSOLUTE NEUT (AUTO) 4.4 10^3/uL (1.7-8.2); EOSINOPHILS % (AUTO) 3.4 % (0-6); HEMATOCRIT 40.8 % (36.0-47.0); HEMOGLOBIN 13.8 g/dL (12.0-15.5); LYMPHOCYTES % (AUTO) 19.1 % (13-45); MEAN CORPUSCULAR HEMOGLOBIN 28.7 pg (27.0-33.4); MEAN CORPUSCULAR HGB CONC 33.8 g/dL (32.0-36.0); MEAN CORPUSCULAR VOLUME 85 fl (80-97); MONOCYTES % (AUTO) 9.4 % (3-13); PLATELET COUNT 251 10^3/uL (150-450); RED CELL DISTRIBUTION WIDTH 15.2 % (11.5-14.0); SEGMENTED NEUTROPHILS % (AUTO) 67.1 % (42-78); TOTAL CELLS COUNTED % (AUTO) 100 %; WHITE BLOOD COUNT 6.5 10^3/uL (4.0-10.5)
--- NOTE | 2018-02-13 13:13 | RADIOLOGY REPORT (SQ) ---
EXAM DESCRIPTION: CTA HEAD COMPLETED DATE/TIME: 02/13/2018 12:52 pm REASON FOR STUDY: right fiacial droop COMPARISON: None. TECHNIQUE: Post IV contrast scanning, thin section axial imaging through the brain to evaluate the a rterial structures. Source and MIP images are saved and reviewed on PACS. Advanced 3D imaging as volume-rendering, MIPs, SSD performed? yes All CT scanners at this facility use dose modulation, iterative reconstruction, and/or weight based d osing when appropriate to reduce radiation dose to as low as reasonably achievable (ALARA). [facility]: Dose Right [facility]: CareDose [facility]: Dose Right [facility]: Teradose 4D [facility]: [employer] CONTRAST TYPE AND DOSE: contrast/concentration: Isovue 370.00 mg/ml; Total Contrast Delivered: 70.0 ml; Total Saline Delivered: 75.0 ml RENAL FUNCTION: Not available LIMITATIONS: None. FINDINGS: [place]: The anterior, middle, posterior cerebral arteries are all patent. No ev idence of aneurysm or focal stenosis. POSTERIOR CIRCULATION: The distal vertebral arteries are patent as is the basilar artery. No aneurysm . BRAIN: No gross enhancing lesions as visualized. The superior cerebral hemispheres are not included in the field of view. BONES: Intact as visualized. SINUSES: No fluid or mucosal thickening. OTHER: No other significant finding. IMPRESSION: NO CTA EVIDENCE OF STENOSIS OR ANEURYSM OF THE [place]. TECHNICAL DOCUMENTATION: JOB ID: [id number] Quality ID # [id number]: Final reports with documentation of one or more dose reduction techniques (e.g., Au tomated exposure control, adjustment of the mA and/or kV according to patient size, use of iterative reconstruction technique) 2010 [employer]- All Rights Reserved Reading location - IP/workstation name: [email or web address]
[2018-02-13 13:20] LABS: ALANINE AMINOTRANSFERASE 51 U/L (9-52); ALBUMIN 4.3 g/dL (3.5-5.0); ALKALINE PHOSPHATASE 89 U/L (38-126); ANION GAP 12 (5-19); ASPARTATE AMINO TRANSFERASE 40 U/L (14-36); BILIRUBIN,DIRECT 0.3 mg/dL (0.0-0.4); BILIRUBIN,TOTAL 0.5 mg/dL (0.2-1.3); BLOOD UREA NITROGEN 22 mg/dL (7-20); CALCIUM 9.2 mg/dL (8.4-10.2); CARBON DIOXIDE 28 mmol/L (22-30); CHLORIDE 105 mmol/L (98-107); CREATINE KINASE 77 U/L (30-135); GLUCOSE 84 mg/dL (75-110); POTASSIUM 4.5 mmol/L (3.6-5.0); SODIUM 144.7 mmol/L (137-145); TOTAL PROTEIN 6.8 g/dL (6.3-8.2)
--- NOTE | 2018-02-13 13:20 | RADIOLOGY REPORT (SQ) ---
EXAM DESCRIPTION: CHEST SINGLE VIEW COMPLETED DATE/TIME: 02/13/2018 1:11 pm REASON FOR STUDY: Stroke-like symptoms COMPARISON: 01/23/2018. EXAM PARAMETERS: NUMBER OF VIEWS: One view. TECHNIQUE: Single frontal radiographic view of the chest acquired. RADIATION DOSE: NA LIMITATIONS: None. FINDINGS: LUNGS AND PLEURA: No opacities, masses or pneumothorax. No pleural effusion. MEDIASTINUM AND HILAR STRUCTURES: No masses. Contour normal. HEART AND VASCULAR STRUCTURES: Heart normal in size. Normal vasculature. BONES: No acute findings. HARDWARE: None in the chest. OTHER: No other significant finding. IMPRESSION: NO ACUTE RADIOGRAPHIC FINDING IN THE CHEST. TECHNICAL DOCUMENTATION: JOB ID: [id number] [employer]- All Rights Reserved Reading location - IP/workstation name: [email or web address]
--- NOTE | 2018-02-13 13:25 | RADIOLOGY REPORT (SQ) ---
EXAM DESCRIPTION: CTA NECK COMPLETED DATE/TIME: 02/13/2018 12:56 pm REASON FOR STUDY: right facial droop COMPARISON: None. TECHNIQUE: Axial dynamic scanning technique with dynamic contrast enhancement through the extra-aircraft systems technician nial carotid and vertebral arteries. Multiplanar reconstruction. 3-D MIPS and Volume-rendered imag es acquired at the workstation and saved to PACS. Images are reviewed in soft tissue, bone, lung w indows. All CT scanners at this facility use dose modulation, iterative reconstruction, and/or weight based d osing when appropriate to reduce radiation dose to as low as reasonably achievable (ALARA). [facility]: Dose Right [facility]: CareDose [facility]: Dose Right [facility]: Teradose 4D [facility]: [employer] CONTRAST TYPE AND DOSE: 70 mL Isovue 370 RENAL FUNCTION: Not available LIMITATIONS: None. FINDINGS: AORTIC ARCH: Normal three-vessel origin. Bilateral subclavian arteries are patent. No d issection. RIGHT CAROTIDS: Patent common, internal and external carotid arteries without suggestion of significa nt stenosis or irregular plaque. No dissection. RIGHT VERTEBRAL: Patent. No dissection. LEFT CAROTIDS: Patent common, internal and external carotid arteries without suggestion of significan t stenosis or irregular plaque. No dissection. LEFT VERTEBRAL: Patent. No dissection. OTHER: No other significant finding. OTHER: 3-D reconstructions confirm findings. IMPRESSION: NORMAL CTA OF THE EXTRA-CRANIAL CAROTID AND VERTEBRAL ARTERIES. COMMENT: Quality ID #[id number]: Measurements of distal internal carotid diameter were used as the denomina tor for stenosis measurement. TECHNICAL DOCUMENTATION: JOB ID: [id number] Quality ID # [id number]: Final reports with documentation of one or more dose reduction techniques (e.g., Au tomated exposure control, adjustment of the mA and/or kV according to patient size, use of iterative reconstruction technique) 2010 [employer]- All Rights Reserved Reading location - IP/workstation name: [email or web address]
[2018-02-13 13:36] LABS: CREATINE KINASE MB 0.88 ng/mL (<4.55)
[2018-02-13 13:37] LABS: TROPONIN I < 0.012 ng/mL
[2018-02-13] MEDS ORDERED: TRAMADOL HCL 50 MG TABLET PO PRN (16:24)
[2018-02-13] MEDS ORDERED: MAGNESIUM HYDROXIDE SUSP 30 ML UDCUP PO PRN (16:32)
[2018-02-13] MEDS ORDERED: ONDANSETRON HCL INJ/PF 4 MG/2 ML SDV IV PRN (16:32)
[2018-02-13] MEDS ORDERED: DOCUSATE SODIUM 100 MG CAPSULE PO PRN (16:32)
[2018-02-13] MEDS ORDERED: ACETAMINOPHEN 325 MG TABLET PO PRN (16:32)
--- NOTE | 2018-02-13 16:58 | PDOC H&P ---
History of Present Illness Admission Date/PCP: 02/13/18 14:49 DIAMOND TORRES MD Patient complains of: Rt facial droop History of Present Illness: MARIA DEL CARMEN RAMSEY is a 67 year old female with a past medical history of paroxysmal atrial tachycardia, sleep apnea (utilizes CPAP), he hypothyroidism, breast cancer, GERD who was admitted 01/24/18 with report of right facial droop that resolved upon arrival to the emergency department; TIA/CVA evaluation was negative for acute CVA. At her follow-up appointment with her primary care provider today, she was noted to again have a right-sided facial droop, this time associated with blurred vision and a headache. She was sent from her primary care provider's office to the emergency department via EMS. Upon arrival to the emergency department, her headache had resolved in her right facial droop had improved significantly. She had no other focal deficits. Last known well at approximately 11 AM. I did discuss with the emergency department physician appropriateness for TPA; given the timing of symptoms, intermittent nature of facial droop, and no other deficits, the risks were determined to outweigh benefits. This was discussed with the patient who expressed understanding and agreement with plans to admit for evaluation with conservative management. Evaluation in the emergency department revealed an essentially normal laboratory evaluation, benign chest x-ray, normal head CT (negative for acute CVA), and EKG that demonstrated sinus rhythm with nonspecific T-wave abnormalities (unchanged from previous EKGs). The patient was referred to the hospitalist service for admission and management of CVA. Past Medical History Cardiac Medical History: Reports: None Pulmonary Medical History: Reports: Pneumonia - HX, Sleep Apnea - CPAP Denies: Asthma, Bronchitis, Chronic Obstructive Pulmonary Disease (COPD), Respiratory Failure, Tuberculosis EENT Medical History: Reports: None Neurological Medical History: Denies: Ischemic CVA, Seizures Endocrine Medical History: Reports: Hypothyroidism, Obesity Denies: Hyperthyroidism Renal/ Medical History: Denies: End Stage Renal Disease Malignancy Medical History: Reports: Breast Cancer - left Denies: Cervical Cancer, Lung Cancer, Ovarian Cancer GI Medical History: Reports: Gastroesophageal Reflux Disease Denies: Crohn's Disease, Hiatal Hernia Musculoskeltal Medical History: Reports: Arthritis Denies: Fibromyalgia Psychiatric Medical History: Reports: Depression Denies: Bipolar Disorder, Dementia, Post Traumatic Stress Disorder, Tobacco Dependency Hematology: Denies: Anemia Infectious Medical History: Reports: None Past Surgical History Past Surgical History: Reports: Section, Cholecystectomy, Gastric Bypass Surgery, Hysterectomy, Orthopedic Surgery - Bilat knees; bilat carpal tunnel; Rt rotator cuff; Rt hip; Rt toe; Lt foot, Other - Lumpectomy Denies: Amputation, Appendectomy, Colostomy, Coronary Artery Bypass Graft, Herniorrhaphy, Mastectomy, Pacemaker, Tonsillectomy, Tubal Ligation Social History Information Source: Patient Lives with: Family Smoking Status: Never Smoker Frequency of Alcohol Use: Occasional Hx Recreational Drug Use: No Drugs: None Hx Prescription Drug Abuse: No - Advance Directive Resuscitation Status: Full Code Family History Family History: Reviewed & Not Pertinent Parental Family History Reviewed: Yes Children Family History Reviewed: Yes Sibling(s) Family History Reviewed.: Yes Medication/Allergy Home Medications: Bupropion HCl [Bupropion HCl Sr] 100 mg PO DAILY 01/23/18 Diltiazem HCl [Diltiazem 12Hr ER] 120 mg PO Q12 01/23/18 Escitalopram Oxalate [Lexapro] 20 mg PO DAILY 01/23/18 Fluticasone Propionate [Flonase Nasal [place] 50 Mcg/[place] 16 gm] 2 spray NAREB DAILY 01/23/18 Furosemide [Lasix 20 mg Tablet] 40 mg PO DAILY 01/23/18 Gabapentin [Neurontin 300 mg Capsule] 300 mg PO QHS 01/23/18 Levothyroxine Sodium [Synthroid] 125 mcg PO Q6AM 01/23/18 Multivitamin [Tab-A-Elizabeth (Multiple Vitamin) Tablet] 1 tab PO DAILY 01/23/18 Omeprazole 20 mg PO BID 01/23/18 Potassium Chloride [Klor-Con M10] 20 meq PO DAILY 01/23/18 Sodium Chloride [Saline Nasal [place]] 2 spray NASL DAILY 01/23/18 Trazodone HCl [Desyrel 50 mg Tablet] 50 mg PO QHS 01/23/18 Aspirin [Ecotrin 81 mg EC Tablet] 81 mg PO DAILY tabec 01/24/18 Atorvastatin Calcium [Lipitor 20 mg Tablet] 20 mg PO QHS #30 tablet 01/24/18 Amoxicillin/Potassium Clav [Augmentin 500-125 Tablet] 1 tab PO Q12 MDD filled for 10ds 02/13/18 Bisoprolol Fumarate [Zebeta 5 mg Tablet] 5 mg PO DAILY 02/13/18 Calcium Carbonate/Vitamin D3 [Calcium 600 + Vit D 400 Tablet] 1 tab PO Q12 02/13 Ciprofloxacin HCl/Dexameth [Ciprodex Otic Suspension 7.5 ml Bottle] 4 drop AU BID MDD filled 02/06 for 7ds 02/13/18 Cyanocobalamin (Vitamin B-12) [Vitamin B-12] 500 mcg PO DAILY 02/13/18 Ferrous Sulfate [Feosol 325 mg Tablet] 325 mg PO DAILY 02/13/18 Meloxicam [Mobic] 15 mg PO DAILY 02/13/18 [place]-3S/Dha/Epa/Fish Oil [Fish Oil [place]-3 Softgel] 1 tab PO WLUNCH 02/13/18 Polymyxin B Sulfate/Tmp [Polytrim Oph Soln 10 ml] 2 drop OD Q6 MDD filled 02/09 for 10ds 02/13/18 Allergies/Adverse Reactions: Sulfa (Sulfonamide Antibiotics) Allergy (Severe, Verified 02/13/18 13:29) Anaphylaxis Review of Systems Constitutional: PRESENT: headache(s). ABSENT: chills, fever(s), weight gain, weight loss Eyes: PRESENT: visual disturbances Ears: ABSENT: hearing changes Cardiovascular: ABSENT: chest pain, dyspnea on exertion, edema, orthropnea, palpitations Respiratory: ABSENT: cough, hemoptysis Gastrointestinal: ABSENT: abdominal pain, constipation, diarrhea, hematemesis, hematochezia, nausea, vomiting Genitourinary: ABSENT: dysuria, hematuria Musculoskeletal: ABSENT: joint swelling Integumentary: ABSENT: rash, wounds Neurological: PRESENT: other - Rt facial droop. ABSENT: abnormal gait, abnormal speech, confusion, dizziness, focal weakness, lack of coordination, numbness, paresthesias, syncope, vertigo Psychiatric: ABSENT: anxiety, depression, homidical ideation, suicidal ideation Endocrine: ABSENT: cold intolerance, heat intolerance, polydipsia, polyuria Hematologic/Lymphatic: ABSENT: easy bleeding, easy bruising Physical Exam Vital Signs: Temp Pulse Resp BP Pulse Ox 58 L 20 107/86 H 94 02/13/18 16:07 02/13/18 16:07 02/13/18 16:07 02/13/18 16:07 General appearance: PRESENT: no acute distress, cooperative, well-developed, well-nourished, other - Overweight Head exam: PRESENT: atraumatic, normocephalic Eye exam: PRESENT: conjunctiva pink, EOMI, PERRLA, other - Ptosis Rt upper lid. ABSENT: nystagmus, scleral icterus Ear exam: PRESENT: normal external ear exam Mouth exam: PRESENT: moist, tongue midline Neck exam: ABSENT: carotid bruit, JVD, lymphadenopathy, thyromegaly Respiratory exam: PRESENT: clear to auscultation erica, symmetrical, unlabored. ABSENT: rales, rhonchi, wheezes Cardiovascular exam: PRESENT: RRR, +S1, +S2. ABSENT: diastolic murmur, rubs, systolic murmur Pulses: PRESENT: normal dorsalis pedis pul Vascular exam: PRESENT: normal capillary refill GI/Abdominal exam: PRESENT: normal bowel sounds, soft. ABSENT: distended, guarding, mass, organolmegaly, rebound, tenderness Rectal exam: PRESENT: deferred Extremities exam: PRESENT: full ROM. ABSENT: calf tenderness, clubbing, pedal edema Neurological exam: PRESENT: alert, awake, oriented to person, oriented to place , oriented to time, oriented to situation, other - Right upper eyelid ptosis, right facial droop noted with smiling, otherwise CN grossly intact; no focal deficits. ABSENT: motor sensory deficit Psychiatric exam: PRESENT: appropriate affect, normal mood. ABSENT: homicidal ideation, suicidal ideation Skin exam: PRESENT: dry, intact, warm. ABSENT: cyanosis, rash Results Impressions: Chest X-Ray 02/13/18 12:32 IMPRESSION: NO ACUTE RADIOGRAPHIC FINDING IN THE CHEST. Head CT 02/13/18 12:32 IMPRESSION: NORMAL BRAIN CT WITHOUT CONTRAST. EVIDENCE OF ACUTE STROKE: NO. Head CTA 02/13/18 12:39 IMPRESSION: NO CTA EVIDENCE OF STENOSIS OR ANEURYSM OF THE [place]. Neck CTA 02/13/18 12:41 IMPRESSION: NORMAL CTA OF THE EXTRA-CRANIAL CAROTID AND VERTEBRAL ARTERIES. Assessment & Plan - Diagnosis (1) CVA (cerebral vascular accident) Qualifiers: Laterality of affected vessel: unspecified Is this a current diagnosis for this admission?: Yes Plan: The patient is admitted with complaint of sudden onset headache, blurred vision , and right-sided facial droop approximately 11 AM today while at her primary care provider's office for follow-up from an admission earlier this month to our facility for TIA. Her headache and blurred vision have subsequently resolved. Facial droop is improved and is now noted intermittently. Patient denies any other focal deficits. EKG demonstrated sinus rhythm with nonspecific T-wave abnormalities. Head CT/CTA negative for acute CVA. Chest x-ray is benign. Lipid panel obtained during her last admission is appropriate. TSH from previous admission is appropriate. The patient is admitted to [facility] on continuous cardiac telemetry. Mends per protocol. PT/OT/ST to evaluate and treat per protocols. Will add hemoglobin A1c to a.m. labs. The patient is placed on high-dose statin therapy. She is placed on daily aspirin and Plavix therapy; will need to evaluate need for chronic anticoagulant. The patient has only been taking aspirin 81 mg daily. We will need to consider SONIA; especially if she is noted to have any atrial arrhythmias. We will attempt to receive records from Dr. Núñez's office; patient had been encouraged to follow-up for event monitoring. Patient also reports that she recently had an echocardiogram completed in his office as an outpatient. Head MRI is pending. Carotid Dopplers are pending. We will continue the patient's home antihypertensive medications; will allow for permissive hypertension 24 hours. (2) Hypothyroidism Is this a current diagnosis for this admission?: Yes Plan: TSH (01/08/18) 3.44 We will continue the patient's home dose levothyroxine. (3) Hypertension Is this a current diagnosis for this admission?: Yes Plan: Normotensive at present. We will continue the patient's antihypertensive medications: Diltiazem, bisoprolol, furosemide. We will allow for permissive hypertension following CVA. (4) Depression Qualifiers: Depression Type: unspecified Qualified Code(s): F32.9 - Major depressive disorder, single episode, unspecified Is this a current diagnosis for this admission?: Yes Plan: We will continue the patient's home medications: trazodone, Wellbutrin, Lexapro. (5) PAT (paroxysmal atrial tachycardia) Is this a current diagnosis for this admission?: Yes Plan: Patient is currently in normal sinus rhythm. We will obtain outpatient records from Dr. Núñez's office; patient was to have an event monitor, I do not believe that she has had the opportunity arrange for this since her discharge earlier this month. We will continue her home medications: Bisoprolol, diltiazem. She is placed on daily aspirin and Plavix therapy. Will monitor on continuous cardiac telemetry to determine need for chronic anticoagulation. (6) Hypertriglyceridemia without hypercholesterolemia Is this a current diagnosis for this admission?: Yes Plan: Lipid panel obtained during her last admission (01/24/18) LDL 90, HDL 38, triglycerides 262, total cholesterol 168 Patient is placed on high-dose statin therapy. - Time Time Spent: 50 to 70 Minutes Medications reviewed and adjusted accordingly: Yes Anticipated discharge: Home Within: within 48 hours - Inpatient Certification Based on my medical assessment, after consideration of the patient's comorbidities, presenting symptoms, or acuity I expect that the services needed warrant INPATIENT care.: Yes I certify that my determination is in accordance with my understanding of Medicare's requirements for reasonable and necessary INPATIENT services [42 CFR 412.3e].: Yes Medical Necessity: Need Close Monitoring Due to Risk of Patient Decompensation, Need for Neurological Checks
--- NOTE | 2018-02-13 18:29 | RADIOLOGY REPORT (SQ) ---
EXAM DESCRIPTION: MRI HEAD WITHOUT COMPLETED DATE/TIME: 02/13/2018 5:53 pm REASON FOR STUDY: CVA; rt facial droop COMPARISON: Brain CT scan dated 02/13/2018 and MRI of the brain dated 01/23/2018 TECHNIQUE: Multiplanar imaging includes non-contrasted T1, T2, FLAIR, and diffusion with ADC map seq uences. Images stored on PACS. LIMITATIONS: None. FINDINGS: ANATOMY: No anomalies. Normal vascular flow voids. Pituitary fossa normal. CSF SPACES: Normal in size and contour. No hemorrhage. CEREBRUM: Sulci and gyri normal in size and contour. There are scattered foci of increased signal in tensity in the periventricular white matter on the FLAIR sequence most consistent with small vessel i schemic changes although the possibility of a demyelinating process cannot be completely excluded. N o evidence of hemorrhage, mass, or extraaxial fluid collection. POSTERIOR FOSSA: No signal alteration. No hemorrhage. No edema, masses or mass effect. Internal eli tory canals, cerebello-pontine angles, mastoids normal. DIFFUSION IMAGING: Negative for acute or sub-acute infarction. ORBITS: No masses. Globes normal. PARANASAL SINUSES: No fluid levels. Mucosa normal. OTHER: No other significant finding. IMPRESSION: There are scattered foci of increased signal intensity in the periventricular white eleanor er on the FLAIR sequence most consistent with small vessel ischemic changes although the possibility of a demyelinating process cannot be completely excluded. No other significant intracranial abnormal ities were identified. Other findings as noted above EVIDENCE OF ACUTE STROKE: NO. TECHNICAL DOCUMENTATION: JOB ID: [id number] [employer]- All Rights Reserved Reading location - IP/workstation name: [email or web address]
[2018-02-13] MEDS: BUPROPION HCL 100 MG TABLET PO SCH (21:09)
[2018-02-13] MEDS: DILTIAZEM HCL 120 MG CAP.SR.24H PO SCH (21:09)
[2018-02-13] MEDS: TRAZODONE HCL 50 MG TABLET PO SCH (21:09)
[2018-02-13] MEDS: ATORVASTATIN CALCIUM 80 MG TABLET PO SCH (21:09)
[2018-02-13] MEDS: FAMOTIDINE 20 MG TABLET PO SCH (21:09)
[2018-02-13] MEDS: HEPARIN SOD (PORCINE) 5,000 UNIT/ML 1 ML SYRINGE SUBCUT SCH (21:10)
[2018-02-13] MEDS ORDERED: (PENDING PHARMACY ID) (Diltiazem Hcl [Diltiazem 12hr Er] 120 MG) PO SCH (22:00)
--- NOTE | 2018-02-13 22:13 | EKG REPORT ---
SEVERITY:- ABNORMAL ECG - SINUS RHYTHM NONSPECIFIC T ABNORMALITIES, DIFFUSE LEADS : Confirmed by: Roque Núñez 13-Feb-2018 22:12:00
[2018-02-14] MEDS: HEPARIN SOD (PORCINE) 5,000 UNIT/ML 1 ML SYRINGE SUBCUT SCH ×3 (05:39→22:43)
[2018-02-14] MEDS: LEVOTHYROXINE SODIUM 0.025 MG TABLET PO SCH (05:39)
[2018-02-14] MEDS: LEVOTHYROXINE SODIUM 0.1 MG TABLET PO SCH (05:39)
[2018-02-14 05:55] LABS: HEMATOCRIT 37.5 % (36.0-47.0); HEMOGLOBIN 12.7 g/dL (12.0-15.5); MEAN CORPUSCULAR HEMOGLOBIN 28.1 pg (27.0-33.4); MEAN CORPUSCULAR HGB CONC 33.9 g/dL (32.0-36.0); MEAN CORPUSCULAR VOLUME 83 fl (80-97); PLATELET COUNT 214 10^3/uL (150-450); RED BLOOD COUNT 4.52 10^6/uL (3.72-5.28); WHITE BLOOD COUNT 5.8 10^3/uL (4.0-10.5)
[2018-02-14] MEDS ORDERED: (PENDING PHARMACY ID) (Levothyroxine Sodium [Synthroid] 125 MCG) PO SCH (06:00)
[2018-02-14 06:19] LABS: ANION GAP 13 (5-19); BLOOD UREA NITROGEN 21 mg/dL (7-20); CALCIUM 8.8 mg/dL (8.4-10.2); CARBON DIOXIDE 25 mmol/L (22-30); CHLORIDE 104 mmol/L (98-107); GLUCOSE 95 mg/dL (75-110); POTASSIUM 4.2 mmol/L (3.6-5.0); SODIUM 141.5 mmol/L (137-145)
[2018-02-14] MEDS: CLOPIDOGREL BISULFATE 75 MG TABLET PO SCH (09:55)
[2018-02-14] MEDS: DILTIAZEM HCL 120 MG CAP.SR.24H PO SCH ×2 (09:55→22:43)
[2018-02-14] MEDS: FUROSEMIDE 20 MG TABLET PO SCH (09:56)
[2018-02-14] MEDS: BUPROPION HCL 100 MG TABLET PO SCH ×2 (09:56→22:43)
[2018-02-14] MEDS: ASPIRIN 81 MG TABLET, ENT COATED PO SCH (09:56)
[2018-02-14] MEDS: ESCITALOPRAM OXALATE 10 MG TABLET PO SCH (09:56)
[2018-02-14] MEDS: FAMOTIDINE 20 MG TABLET PO SCH ×2 (09:56→22:43)
[2018-02-14] MEDS: POTASSIUM CHLORIDE 10 MEQ CAPSULE.ER PO SCH (09:56)
[2018-02-14] MEDS: FLUTICASONE NASAL SPRAY 50 MCG/SPRY 120 SPRAY/16 GM NAREB SCH (09:57)
[2018-02-14] MEDS: ATENOLOL 50 MG TABLET PO SCH (09:57)
[2018-02-14] MEDS ORDERED: (PENDING PHARMACY ID) (Bupropion Hcl [Bupropion Hcl Sr] 100 MG) PO SCH (10:00)
[2018-02-14] MEDS ORDERED: (PENDING PHARMACY ID) (Potassium Chloride [Klor-Con M10] 20 MEQ) PO SCH (10:00)
[2018-02-14] MEDS ORDERED: (PENDING PHARMACY ID) (Bisoprolol Fumarate [Zebeta 5 Mg Tablet] 5 MG) PO SCH (10:00)
--- NOTE | 2018-02-14 17:09 | PDOC PROGRESS REPORT ---
Subjective Progress Note for:: 02/14/18 Subjective:: The patient is a 67-year-old female with a past medical history of paroxysmal atrial tachycardia, sleep apnea (utilizes CPAP), he hypothyroidism, breast cancer, GERD who was admitted 01/24/18 with report of right facial droop that resolved upon arrival to the emergency department; TIA/CVA evaluation was negative for acute CVA and readmitted on 02/13/18 for right facial droop that has since resolved but persisted longer than her initial presentation. The patient was seen on afternoon rounds. She is found resting in bed comfortably on room air. She was noted to have complete resolution of her right eye ptosis and significant improvement in her facial droop (appears symmetrical to myself and nursing, however, speech therapy notes subtle changes) . The patient denies headache, dizziness, vision changes, dysphagia, chest pain , palpitations, dyspnea, and orthopnea. Overall, she reports that she is feeling well and believes that all of her symptoms have resolved. We discussed her laboratory and imaging results. Echocardiogram was pending at the time of assessment. MRI revealed scattered foci in the periventricular white matter consistent with small vessel ischemic changes although demyelinating process cannot be excluded. Given the intermittent right facial droop both this admission and previously with no associated focal deficits, the patient was agreeable to remaining inpatient pending echocardiogram results and telephone consultation with neurologist. All questions and concerns were addressed; patient has no complaints at this time. Reason For Visit: CVA Physical Exam Vital Signs: Temp Pulse Resp BP Pulse Ox 98.6 F 59 L 16 97/61 L 98 02/14/18 15:02 02/14/18 16:00 02/14/18 16:00 02/14/18 16:00 02/14/18 16:00 Intake & Output 02/13/18 02/14/18 02/15/18 06:59 06:59 06:59 Intake Total 350 600 Balance 350 600 Weight 93.1 kg General appearance: PRESENT: no acute distress, cooperative, well-developed, well-nourished Head exam: PRESENT: atraumatic, normocephalic Eye exam: PRESENT: conjunctiva pink, EOMI, PERRLA. ABSENT: scleral icterus Ear exam: PRESENT: normal external ear exam Mouth exam: PRESENT: moist, tongue midline Neck exam: ABSENT: carotid bruit, JVD, lymphadenopathy, thyromegaly Respiratory exam: PRESENT: clear to auscultation erica. ABSENT: rales, rhonchi, wheezes Cardiovascular exam: PRESENT: RRR. ABSENT: diastolic murmur, rubs, systolic murmur Pulses: PRESENT: normal dorsalis pedis pul Vascular exam: PRESENT: normal capillary refill GI/Abdominal exam: PRESENT: normal bowel sounds, soft. ABSENT: distended, guarding, mass, organolmegaly, rebound, tenderness Rectal exam: PRESENT: deferred Extremities exam: PRESENT: full ROM. ABSENT: calf tenderness, clubbing, pedal edema Neurological exam: PRESENT: alert, awake, oriented to person, oriented to place , oriented to time, oriented to situation, CN II-XII grossly intact. ABSENT: motor sensory deficit Psychiatric exam: PRESENT: appropriate affect, normal mood. ABSENT: homicidal ideation, suicidal ideation Skin exam: PRESENT: dry, intact, warm. ABSENT: cyanosis, rash Results Laboratory Results: 02/14/18 04:54 02/14/18 04:54 02/14/18 02/14/18 04:54 04:54 WBC 5.8 RBC 4.52 Hgb 12.7 Hct 37.5 MCV 83 MCH 28.1 MCHC 33.9 RDW 15.0 H Plt Count 214 Sodium 141.5 Potassium 4.2 Chloride 104 Carbon Dioxide 25 Anion Gap 13 BUN 21 H Creatinine 0.73 Est GFR ( Amer) > 60 Est GFR (Non-Af Amer) > 60 Glucose 95 Calcium 8.8 Impressions: Head MRI 02/13/18 00:00 IMPRESSION: There are scattered foci of increased signal intensity in the periventricular white matter on the FLAIR sequence most consistent with small vessel ischemic changes although the possibility of a demyelinating process cannot be completely excluded. No other significant intracranial abnormalities were identified. Other findings as noted above EVIDENCE OF ACUTE STROKE: NO. Chest X-Ray 02/13/18 12:32 IMPRESSION: NO ACUTE RADIOGRAPHIC FINDING IN THE CHEST. Head CT 02/13/18 12:32 IMPRESSION: NORMAL BRAIN CT WITHOUT CONTRAST. EVIDENCE OF ACUTE STROKE: NO. Head CTA 02/13/18 12:39 IMPRESSION: NO CTA EVIDENCE OF STENOSIS OR ANEURYSM OF [place]. Neck CTA 02/13/18 12:41 IMPRESSION: NORMAL CTA OF THE EXTRA-CRANIAL CAROTID AND VERTEBRAL ARTERIES. Assessment & Plan - Diagnosis (1) CVA (cerebral vascular accident) Qualifiers: Laterality of affected vessel: unspecified Is this a current diagnosis for this admission?: Yes Plan: The patient is admitted with complaint of sudden onset headache, blurred vision , and right-sided facial droop approximately 11 AM today while at her primary care provider's office for follow-up from an admission earlier this month to our facility for TIA. Her headache and blurred vision have subsequently resolved. Facial droop is improved and is now noted intermittently. Patient denies any other focal deficits. EKG demonstrated sinus rhythm with nonspecific T-wave abnormalities. Head CT/CTA negative for acute CVA. Chest x-ray is benign. Lipid panel obtained during her last admission is appropriate. TSH from previous admission is appropriate. A1c 5.2% MRI of the head revealed scattered foci in the periventricular white matter on FLAIR sequence most consistent with small vessel ischemic changes, although possibility of demyelinating process was not completely excluded. Echocardiogram is pending. The patient is admitted to [facility] on continuous cardiac telemetry. Mends per protocol. PT/OT/ST have evaluated and signed off. to evaluate and treat per protocols she Is crystal. Continue high-dose statin therapy. Continue daily aspirin and Plavix therapy; will need to evaluate need for chronic anticoagulant. The patient has only been taking aspirin 81 mg daily. Once echocardiogram report is available; we will place a telephone consult to by the neurology for further recommendations. The patient may benefit from SONIA and event monitoring. Will also discuss MRI results questioning possibility of demyelinating process. (2) Hypothyroidism Is this a current diagnosis for this admission?: Yes Plan: TSH (01/08/18) 3.44 We will continue the patient's home dose levothyroxine. (3) Hypertension Is this a current diagnosis for this admission?: Yes Plan: Normotensive at present. We will continue the patient's antihypertensive medications: Diltiazem, bisoprolol, furosemide. We will allow for permissive hypertension following CVA. (4) Depression Qualifiers: Depression Type: unspecified Qualified Code(s): F32.9 - Major depressive disorder, single episode, unspecified Is this a current diagnosis for this admission?: Yes Plan: We will continue the patient's home medications: trazodone, Wellbutrin, Lexapro. (5) PAT (paroxysmal atrial tachycardia) Is this a current diagnosis for this admission?: Yes Plan: Patient is currently in normal sinus rhythm. We will continue her home medications: Bisoprolol, diltiazem. She is placed on daily aspirin and Plavix therapy. Will monitor on continuous cardiac telemetry to determine need for chronic anticoagulation. (6) Hypertriglyceridemia without hypercholesterolemia Is this a current diagnosis for this admission?: Yes Plan: Lipid panel obtained during her last admission (01/24/18) LDL 90, HDL 38, triglycerides 262, total cholesterol 168 Patient is placed on high-dose statin therapy. - Time Time Spent with patient: 25-34 minutes Medications reviewed and adjusted accordingly: Yes Anticipated discharge: Home Within: within 24 hours
--- NOTE | 2018-02-14 17:36 | XCELERA REPORT ---
[address] [address] Transthoracic Echocardiogram Report Name: MARIA DEL CARMEN RAMSEY Age: 67 yrs Gender: Female : 1950 Patient Status: Inpatient Patient Location: [address] [place] [address] Study Date: 02/14/2018 10:24 AM Height: 65 in Weight: 209 lb BSA: 2.0 m2 Procedure: A two-dimensional transthoracic echocardiogram with color flow Doppler was performed. Study Quality: Fair. Reason For Study: CVA History: CVA. Ordering Physician: GEETHA CASTILLO Performed By: Negar Luna Interpretation Summary There is no obvious cardiac source of embolus noted on this transthoracic echocardiogram. Follow-up with a SONIA is suggested if cardiac source is still suspected. The left ventricle is normal in size. There is normal left ventricular wall thickness. LV EF is > than 60% Left ventricular systolic function is normal. Doppler measurements suggest normal left ventricular diastolic function The left ventricular wall motion is normal. There is no thrombus. The left atrial size is normal. There is no evidence of mitral valve prolapse. There is no mitral valve stenosis. There is a mild amount of mitral regurgitation There is no aortic valve stenosis No aortic regurgitation is present. There is no tricuspid stenosis. There is a mild amount of tricuspid regurgitation There is mild pulmonary hypertension by echo RVSP is 36 to 41 mm of Hg , with RA mean of 5 to 10. There is no pulmonic valvular stenosis. There is a trace amount of pulmonic regurgitation There is no pericardial effusion. There is no obvious cardiac source of embolus noted on this transthoracic echocardiogram. Follow-up with a SONIA is suggested if cardiac source is still suspected MMode/2D Measurements & Calculations RVDd: 2.6 cm LVIDd: 5.2 cmFS: 34.3 % Ao root diam: 2.9 cm IVSd: 0.92 cm LVIDs: 3.4 cmEDV(Teich): 129.1 ml LVPWd: 1.0 cmESV(Teich): 47.8 ml Ao root area: 6.8 cm2 EF(Teich): 63.0 % LA dimension: 3.0 cm LVOT diam: 2.0 cm LVOT area: 3.1 cm2 Doppler Measurements & Calculations MV E max alejandrina: MV P1/2t max alejandrina: Ao V2 max: LV V1 max P.4 cm/sec 104.5 cm/sec 123.3 cm/sec 4.0 mmHg MV A max alejandrina: MV P1/2t: 59.6 msec Ao max PG: LV V1 max: 87.4 cm/sec MVA(P1/2t): 3.7 cm2 6.1 mmHg 99.3 cm/sec MV E/A: 0.99 MV dec slope: DUSTIN(V,D): 2.5 cm2 514.0 cm/sec2 MV dec time: 0.23 sec PA V2 max: TR max alejandrina: 96.5 cm/sec 275.8 cm/sec PA max PG: TR max P.4 mmHg 3.7 mmHg Left Ventricle The left ventricle is normal in size. There is normal left ventricular wall thickness. LV EF is > than 60%. Left ventricular systolic function is normal. Doppler measurements suggest normal left ventricular diastolic function. The left ventricular wall motion is normal. There is no thrombus. There is no ventricular septal defect visualized. Right Ventricle The right ventricle is normal in size and function. Atria The right atrium is normal. The left atrial size is normal. The interatrial septum is intact with no evidence for an atrial septal defect. Mitral Valve There is no evidence of mitral valve prolapse. There is no vegetation seen on the mitral valve. There is no mitral valve stenosis. There is a mild amount of mitral regurgitation. Aortic Valve There is no aortic valvular vegetation. There is no aortic valve stenosis. There is no LVOT obstruction. No aortic regurgitation is present. Tricuspid Valve There is no tricuspid stenosis. There is a mild amount of tricuspid regurgitation. There is mild pulmonary hypertension by echo. RVSP is 36 to 41 mm of Hg , with RA mean of 5 to 10. Pulmonic Valve There is no pulmonic valvular stenosis. There is a trace amount of pulmonic regurgitation. Great Vessels The aortic root is normal size. Effusions There is no pericardial effusion. : KATERINA CASTILLOC > Brenda Santacruz
[2018-02-14] MEDS: ATORVASTATIN CALCIUM 80 MG TABLET PO SCH (22:43)
[2018-02-14] MEDS: TRAZODONE HCL 50 MG TABLET PO SCH (22:43)
[2018-02-15] MEDS: HEPARIN SOD (PORCINE) 5,000 UNIT/ML 1 ML SYRINGE SUBCUT SCH (05:28)
[2018-02-15] MEDS: LEVOTHYROXINE SODIUM 0.025 MG TABLET PO SCH (05:28)
[2018-02-15] MEDS: LEVOTHYROXINE SODIUM 0.1 MG TABLET PO SCH (05:28)
[2018-02-15 05:53] LABS: HEMATOCRIT 39.7 % (36.0-47.0); HEMOGLOBIN 13.7 g/dL (12.0-15.5); MEAN CORPUSCULAR HEMOGLOBIN 28.5 pg (27.0-33.4); MEAN CORPUSCULAR HGB CONC 34.4 g/dL (32.0-36.0); MEAN CORPUSCULAR VOLUME 83 fl (80-97); PLATELET COUNT 221 10^3/uL (150-450); RED BLOOD COUNT 4.79 10^6/uL (3.72-5.28); RED CELL DISTRIBUTION WIDTH 14.7 % (11.5-14.0)
[2018-02-15 06:04] LABS: ANION GAP 10 (5-19); BLOOD UREA NITROGEN 23 mg/dL (7-20); CALCIUM 9.1 mg/dL (8.4-10.2); CARBON DIOXIDE 27 mmol/L (22-30); CHLORIDE 106 mmol/L (98-107); GLUCOSE 108 mg/dL (75-110); POTASSIUM 3.8 mmol/L (3.6-5.0); SODIUM 142.9 mmol/L (137-145)
[2018-02-15 08:50] VITALS: BP 101/68
[2018-02-15] MEDS: ASPIRIN 81 MG TABLET, ENT COATED PO SCH (09:10)
[2018-02-15] MEDS: BUPROPION HCL 100 MG TABLET PO SCH (09:10)
[2018-02-15] MEDS: FUROSEMIDE 20 MG TABLET PO SCH (09:10)
[2018-02-15] MEDS: POTASSIUM CHLORIDE 10 MEQ CAPSULE.ER PO SCH (09:10)
[2018-02-15] MEDS: CLOPIDOGREL BISULFATE 75 MG TABLET PO SCH (09:11)
[2018-02-15] MEDS: ESCITALOPRAM OXALATE 10 MG TABLET PO SCH (09:11)
[2018-02-15] MEDS: FAMOTIDINE 20 MG TABLET PO SCH (09:11)
[2018-02-15] MEDS: DILTIAZEM HCL 120 MG CAP.SR.24H PO SCH (09:11)
[2018-02-15] MEDS: FLUTICASONE NASAL SPRAY 50 MCG/SPRY 120 SPRAY/16 GM NAREB SCH (09:12)
[2018-02-15] MEDS: ATENOLOL 50 MG TABLET PO SCH (09:13)
--- NOTE | 2018-02-17 18:45 | PDOC DISCHARGE SUMMARY ---
General - Admit/Disc Date/PCP Admission Date/Primary Care Provider: 02/13/18 16:26 DIAMOND TORRES MD Discharge Date: 02/15/18 - Discharge Diagnosis (1) TIA (transient ischemic attack) Is this a current diagnosis for this admission?: Yes Summary: The patient was admitted with complaint of sudden onset headache, blurred vision , and right-sided facial droop while at her primary care provider's office for follow-up from an admission earlier this month to our facility for TIA. Her headache and blurred vision have subsequently resolved. Facial droop is improved and is now noted intermittently. Patient denies any other focal deficits. EKG demonstrated sinus rhythm with nonspecific T-wave abnormalities. Head CT/CTA negative for acute CVA. Chest x-ray is benign. Lipid panel obtained during her last admission is appropriate. TSH from previous admission is appropriate. A1c 5.2% MRI of the head revealed scattered foci in the periventricular white matter on FLAIR sequence most consistent with small vessel ischemic changes, although possibility of demyelinating process was not completely excluded. Echocardiogram is benign; no cardiac source for CVA was identified.. The patient is admitted to [facility] on continuous cardiac telemetry; she remained in a normal sinus rhythm throughout. She was placed on daily aspirin, statin, and Plavix therapy. PT/OT/ST have evaluated and signed off. On-call neurologist, Dr. Sepulveda, at [facility] was contacted for follow-up recommendations. He recommended the patient have an outpatient EEG and follow-up in his office in 4-6 weeks. At time of discharge, all of the patient's symptoms have resolved. She was provided prescriptions for aspirin, Plavix, and instructed to continue her home dose statin. She was advised to follow-up with her primary care provider within 1 week and to follow-up with Dr. Sepulveda as described above. (2) Hypothyroidism Is this a current diagnosis for this admission?: No Summary: TSH (01/08/18) 3.44 The patient's home dose levothyroxine was continued unchanged. (3) Hypertension Is this a current diagnosis for this admission?: Yes Summary: Normotensive at present. The patient's home dose antihypertensive medications were continued unchanged: Diltiazem, bisoprolol, furosemide. (4) Depression Is this a current diagnosis for this admission?: No Summary: The patient's home medications were continued unchanged: trazodone, Wellbutrin, Lexapro. (5) PAT (paroxysmal atrial tachycardia) Is this a current diagnosis for this admission?: Yes Summary: Her home medications were continued unchanged: Bisoprolol, diltiazem. She was placed on daily aspirin and Plavix therapy. The patient was monitored on continuous cardiac telemetry; she remained in normal sinus rhythm. No indication for chronic anticoagulation at this time. (6) Hypertriglyceridemia without hypercholesterolemia Is this a current diagnosis for this admission?: Yes Summary: Lipid panel obtained during her last admission (01/24/18) LDL 90, HDL 38, triglycerides 262, total cholesterol 168 Continue daily statin therapy. - Additional Information Resuscitation Status: Full Code Discharge Diet: Cardiac Discharge Activity: Activity As Tolerated, Balance Activity w/Rest Prescriptions: Clopidogrel Bisulfate [Plavix 75 mg Tablet] 75 mg PO DAILY #30 tablet Home Medications: Bupropion HCl [Bupropion HCl Sr] 100 mg PO DAILY 01/23/18 Diltiazem HCl [Diltiazem 12Hr ER] 120 mg PO Q12 01/23/18 Escitalopram Oxalate [Lexapro] 20 mg PO DAILY 01/23/18 Fluticasone Propionate [Flonase Nasal [place] 50 Mcg/[place] 16 gm] 2 spray NAREB DAILY 01/23/18 Furosemide [Lasix 20 mg Tablet] 40 mg PO DAILY 01/23/18 Gabapentin [Neurontin 300 mg Capsule] 300 mg PO QHS 01/23/18 Levothyroxine Sodium [Synthroid] 125 mcg PO Q6AM 01/23/18 Multivitamin [Tab-A-Elizabeth (Multiple Vitamin) Tablet] 1 tab PO DAILY 01/23/18 Omeprazole 20 mg PO BID 01/23/18 Potassium Chloride [Klor-Con M10] 20 meq PO DAILY 01/23/18 Sodium Chloride [Saline Nasal [place]] 2 spray NASL DAILY 01/23/18 Trazodone HCl [Desyrel 50 mg Tablet] 50 mg PO QHS 01/23/18 Aspirin [Ecotrin 81 mg EC Tablet] 81 mg PO DAILY tabec 01/24/18 Atorvastatin Calcium [Lipitor 20 mg Tablet] 20 mg PO QHS #30 tablet 01/24/18 Bisoprolol Fumarate [Zebeta 5 mg Tablet] 5 mg PO DAILY 02/13/18 Calcium Carbonate/Vitamin D3 [Calcium 600 + Vit D 400 Tablet] 1 tab PO Q12 02/13 Cyanocobalamin (Vitamin B-12) [Vitamin B-12] 500 mcg PO DAILY 02/13/18 Ferrous Sulfate [Feosol 325 mg Tablet] 325 mg PO DAILY 02/13/18 Meloxicam [Mobic] 15 mg PO DAILY 02/13/18 [place]-3S/Dha/Epa/Fish Oil [Fish Oil [place]-3 Softgel] 1 tab PO WLUNCH 02/13/18 Polymyxin B Sulfate/Tmp [Polytrim Oph Soln 10 ml] 2 drop OD Q6 MDD filled 02/09 for 10ds 02/13/18 Acetaminophen [Tylenol 325 mg Tablet] 650 mg PO Q4HP PRN tablet 02/15/18 Aspirin [Ecotrin 81 mg EC Tablet] 81 mg PO DAILY tabec 02/15/18 Clopidogrel Bisulfate [Plavix 75 mg Tablet] 75 mg PO DAILY #30 tablet 02/15/18 History of Present Illness History of Present Illness: MARIA DEL CARMEN RAMSEY is a 67 year old female with a past medical history of paroxysmal atrial tachycardia, sleep apnea (utilizes CPAP), he hypothyroidism, breast cancer, GERD who was admitted 01/24/18 with report of right facial droop that resolved upon arrival to the emergency department; TIA/CVA evaluation was negative for acute CVA. At her follow-up appointment with her primary care provider today, she was noted to again have a right-sided facial droop, this time associated with blurred vision and a headache. She was sent from her primary care provider's office to the emergency department via EMS. Upon arrival to the emergency department, her headache had resolved in her right facial droop had improved significantly. She had no other focal deficits. Last known well at approximately 11 AM. I did discuss with the emergency department physician appropriateness for TPA; given the timing of symptoms, intermittent nature of facial droop, and no other deficits, the risks were determined to outweigh benefits. This was discussed with the patient who expressed understanding and agreement with plans to admit for evaluation with conservative management. Evaluation in the emergency department revealed an essentially normal laboratory evaluation, benign chest x-ray, normal head CT (negative for acute CVA), and EKG that demonstrated sinus rhythm with nonspecific T-wave abnormalities (unchanged from previous EKGs). The patient was referred to the hospitalist service for admission and management of CVA. Physical Exam Vital Signs: Temp Pulse Resp BP Pulse Ox 97.6 F 64 16 101/68 97 02/15/18 11:05 02/15/18 11:05 02/15/18 11:05 02/15/18 08:26 02/15/18 11:05 General appearance: PRESENT: no acute distress, well-developed, well-nourished Head exam: PRESENT: atraumatic, normocephalic Eye exam: PRESENT: conjunctiva pink, EOMI, PERRLA. ABSENT: scleral icterus Ear exam: PRESENT: normal external ear exam Mouth exam: PRESENT: moist, tongue midline Neck exam: ABSENT: carotid bruit, JVD, lymphadenopathy, thyromegaly Respiratory exam: PRESENT: clear to auscultation erica. ABSENT: rales, rhonchi, wheezes Cardiovascular exam: PRESENT: RRR. ABSENT: diastolic murmur, rubs, systolic murmur Pulses: PRESENT: normal dorsalis pedis pul Vascular exam: PRESENT: normal capillary refill GI/Abdominal exam: PRESENT: normal bowel sounds, soft. ABSENT: distended, guarding, mass, organolmegaly, rebound, tenderness Rectal exam: PRESENT: deferred Extremities exam: PRESENT: full ROM. ABSENT: calf tenderness, clubbing, pedal edema Neurological exam: PRESENT: alert, awake, oriented to person, oriented to place , oriented to time, oriented to situation, CN II-XII grossly intact. ABSENT: motor sensory deficit Psychiatric exam: PRESENT: appropriate affect, normal mood. ABSENT: homicidal ideation, suicidal ideation Skin exam: PRESENT: dry, intact, warm. ABSENT: cyanosis, rash Results Laboratory Results: 02/15/18 05:27 02/15/18 05:27 Impressions: Head MRI 02/13/18 00:00 IMPRESSION: There are scattered foci of increased signal intensity in the periventricular white matter on the FLAIR sequence most consistent with small vessel ischemic changes although the possibility of a demyelinating process cannot be completely excluded. No other significant intracranial abnormalities were identified. Other findings as noted above EVIDENCE OF ACUTE STROKE: NO. Chest X-Ray 02/13/18 12:32 IMPRESSION: NO ACUTE RADIOGRAPHIC FINDING IN THE CHEST. Head CT 02/13/18 12:32 IMPRESSION: NORMAL BRAIN CT WITHOUT CONTRAST. EVIDENCE OF ACUTE STROKE: NO. Head CTA 02/13/18 12:39 IMPRESSION: NO CTA EVIDENCE OF STENOSIS OR ANEURYSM OF THE MOHEGAN OF [place]. Neck CTA 02/13/18 12:41 IMPRESSION: NORMAL CTA OF THE EXTRA-CRANIAL CAROTID AND VERTEBRAL ARTERIES. Qualifiers - * PATIENT BEING DISCHARGED WITH ANY OF THE FOLLOWING DIAGNOSIS: No Plan Discharge Plan: The patient is discharged home with self-care with prescriptions for aspirin and Plavix; to resume her home dose atorvastatin. Follow-up with primary care provider within 1 week. Follow-up with Dr. Sepulveda, [facility] neurology in 4-6 weeks. He recommends outpatient EEG prior to follow-up. Patient to contact his office to arrange this evaluation. Time Spent: Greater than 30 Minutes
== END 2018-02-15 13:23 | disposition home or self-care (01) | DRG 69 ==
LOC: ER 12:24 → EH 14:49 → OBSVTOIN 16:26 → 3S 18:45
PROVIDERS: ADMIT Internal Medicine; ATTEND Internal Medicine
DX: G45.9 Transient cerebral ischemic attack, unspecified (principal); I47.1 Supraventricular tachycardia; R29.810 Facial weakness; H53.8 Other visual disturbances; E03.9 Hypothyroidism, unspecified; I10 Essential (primary) hypertension; F32.9 Major depressive disorder, single episode, unspecified; E78.1 Pure hyperglyceridemia; G47.30 Sleep apnea, unspecified; M19.90 Unspecified osteoarthritis, unspecified site; K21.9 Gastro-esophageal reflux disease without esophagitis; Z96.641 Presence of right artificial hip joint; Z96.652 Presence of left artificial knee joint; E66.9 Obesity, unspecified; Z68.33 Body mass index [BMI] 33.0-33.9, adult; Z85.3 Personal history of malignant neoplasm of breast; Z99.81 Dependence on supplemental oxygen; Z90.49 Acquired absence of other specified parts of digestive tract; Z90.710 Acquired absence of both cervix and uterus; Z98.84 Bariatric surgery status; Z79.82 Long term (current) use of aspirin; Z79.899 Other long term (current) drug therapy; Z88.2 Allergy status to sulfonamides; Z79.02 Long term (current) use of antithrombotics/antiplatelets; Z79.01 Long term (current) use of anticoagulants
CPT/HCPCS: 36415; 70450; 70496; 70498; 70551; 71045; 80048; 80053; 82550; 82553; 83036; 84484; 85025; 85027; 85610; 85730; 93005; 93010; 93306; 99285; G8978-GP; G8979-GP; G8980-GP; J1644; J3490

== ENCOUNTER → 2018-03-27 | Outpatient (CLI) | payer MEDICARE ==
--- NOTE | 2018-03-28 08:14 | EEG PRO FEE REPORT ---
EEG INTERPRETATION PATIENT NAME: MARIA DEL CARMEN RAMSEY ROOM#: OP ORDER#: [id number] DATE OF STUDY: 03/27/2018 : 1950 REFERRING MD: BRY GILMAN M.D. MEDICATIONS: Thyroxine, Bisoprolol, Atorvastatin, Gabapentin, Aspirin, Trazodone, Diclofenac, furosemide, potassium, escitalopram, bupropion, Plavix, Diltiazem, omeprazole, fluticasone, multivitamin, fish oil, calcium History This is a 67 year old right handed woman with a history of TIA, knee surgery, breast cancer, hip replacement, gastric bypass, hydronephrosis, paroxysmal atrial tachycardia, and aortic and mitral valve regurgitation. This EEG was requested for possible seizures. EEG Interpretation This EEG was recorded in the awake and drowsy states. The awake EEG is characterized by a well organized background with a well developed and reactive posterior dominant rhythm of 10 Hz. There was prominent alpha squeak. Mu was seen in the central regions. There frequent sharply contoured rhythmic theta discharges {approximately 6 Hz frequency}, maximal more central and posteriorly with no clinical correlations. These are most consistent with SREDA {subclinical rhythmic electrographic discharges of adults}. Drowsiness is characterized by slowing of the background rhythms. There was theta slowing in the temporal regions consistent with rhythmic mid-temporal theta of drowsiness {aka psychomotor variant}. Photic stimulation resulted in generalized slowing of the background rhythms. There were no definite epileptiform abnormalities noted. The EKG showed a regular rhythm. There was artifact in the temporal channels impairing interpretation. EEG Impression This EEG is within normal limits for age. SREDA is a benign variant in older adults. Rhythmic mid-temporal theta drowsiness is a benign variant. INTERPRETING PHYSICIAN: TIMO CHU M.D. /: MTEFFT TT: [id number] ID: [id number] /: [id number] TD: 1806 JOB: [id number] cc:Jimenez SOUZA M.D. > MTDD
== END ==
LOC: NEURO 12:55
PROVIDERS: ATTEND Pediatrics
DX: G45.9 Transient cerebral ischemic attack, unspecified (principal); R26.89 Other abnormalities of gait and mobility; R29.810 Facial weakness
CPT/HCPCS: 95819

== ENCOUNTER → 2018-11-29 | Outpatient (CLI) | payer MEDICARE, OTHER ==
--- NOTE | 2018-11-29 13:23 | WOMENS IMAGING REPORT ---
EXAM DESCRIPTION: BILAT DIAGNOSTIC MAMMO W/CAD; U/S BREAST UNILAT LIMITED COMPLETED DATE/TIME: 11/29/2018 12:36 pm; 11/29/2018 1:04 pm REASON FOR STUDY: N64.4 RIGHT BREAST PAIN; RT BREAST PAIN N64.4 N64.4 MASTODYNIA COMPARISON: [id number] TECHNIQUE: Standard craniocaudal and mediolateral oblique views of each breast recorded using digita l acquisition. True lateral view right breast. LIMITATIONS: None. FINDINGS: RIGHT BREAST MASSES: No suspicious masses. CALCIFICATIONS: No new or suspicious calcifications. ARCHITECTURAL DISTORTION: None. DEVELOPING DENSITY: None. ASYMMETRY: None noted. OTHER: Prior reduction. LEFT BREAST MASSES: No suspicious masses. CALCIFICATIONS: No new or suspicious calcifications. ARCHITECTURAL DISTORTION: Stable. DEVELOPING DENSITY: None. ASYMMETRY: None noted. OTHER: No other significant finding. Read with the assistance of CAD: [facility] - R2 Manager Intern Version 9.2 Ultrasound the right breast demonstrates no suspicious mass. IMPRESSION: No evidence of malignancy. ASSESSMENT:BIRADS 2: BENIGN FINDINGS BREAST DENSITY: b. There are scattered areas of fibroglandular density. BIRAD: 2 Benign findings. RECOMMENDATION: RECOMMENDED FOLLOW UP: Birads 1 or 2: No breast imaging finding to explain the patie nt's presenting complaint. Further intervention should be based on the degree of clinical suspicion. SPECIFIC INTERVENTION/IMAGING/CONSULTATION RECOMMENDED:No additional intervention/ imaging/consultati on needed at this time. COMMUNICATION:The imaging findings were not discussed with the patient. Her referring provider has be en notified of the findings. COMMENT: The patient has been notified of the results by letter per MQSA requirements. Additional no tification policies are in place for contacting patient with suspicious or incomplete findings. Quality ID #225: The [employer] recommends an annual screening mammogram for women aged 40 years or over. This facility utilizes a reminder system to ensure that all patients receive reminder letters, and/or direct phone calls for appointments. This includes reminders for routine scr eening mammograms, diagnostic mammograms, or other Breast Imaging Interventions when appropriate. Th is patient will be placed in the appropriate reminder system. TECHNICAL DOCUMENTATION: FINDING NUMBER: (1) ASSESSMENT: (1) JOB ID: [id number] [employer]- All Rights Reserved Reading location - IP/workstation name: [email or web address]
--- NOTE | 2018-11-29 13:23 | WOMENS IMAGING REPORT ---
EXAM DESCRIPTION: BILAT DIAGNOSTIC MAMMO W/CAD; U/S BREAST UNILAT LIMITED COMPLETED DATE/TIME: 11/29/2018 12:36 pm; 11/29/2018 1:04 pm REASON FOR STUDY: N64.4 RIGHT BREAST PAIN; RT BREAST PAIN N64.4 N64.4 MASTODYNIA COMPARISON: [id number] TECHNIQUE: Standard craniocaudal and mediolateral oblique views of each breast recorded using digita l acquisition. True lateral view right breast. LIMITATIONS: None. FINDINGS: RIGHT BREAST MASSES: No suspicious masses. CALCIFICATIONS: No new or suspicious calcifications. ARCHITECTURAL DISTORTION: None. DEVELOPING DENSITY: None. ASYMMETRY: None noted. OTHER: Prior reduction. LEFT BREAST MASSES: No suspicious masses. CALCIFICATIONS: No new or suspicious calcifications. ARCHITECTURAL DISTORTION: Stable. DEVELOPING DENSITY: None. ASYMMETRY: None noted. OTHER: No other significant finding. Read with the assistance of CAD: .[facility] - R2 Research Manager Version 9.2 Ultrasound the right breast demonstrates no suspicious mass. IMPRESSION: No evidence of malignancy. ASSESSMENT:BIRADS 2: BENIGN FINDINGS BREAST DENSITY: b. There are scattered areas of fibroglandular density. BIRAD: 2 Benign findings. RECOMMENDATION: RECOMMENDED FOLLOW UP: Birads 1 or 2: No breast imaging finding to explain the patie nt's presenting complaint. Further intervention should be based on the degree of clinical suspicion. SPECIFIC INTERVENTION/IMAGING/CONSULTATION RECOMMENDED:No additional intervention/ imaging/consultati on needed at this time. COMMUNICATION:The imaging findings were not discussed with the patient. Her referring provider has be en notified of the findings. COMMENT: The patient has been notified of the results by letter per MQSA requirements. Additional no tification policies are in place for contacting patient with suspicious or incomplete findings. Quality ID #225: The [employer] recommends an annual screening mammogram for women aged 40 years or over. This facility utilizes a reminder system to ensure that all patients receive reminder letters, and/or direct phone calls for appointments. This includes reminders for routine scr eening mammograms, diagnostic mammograms, or other Breast Imaging Interventions when appropriate. Th is patient will be placed in the appropriate reminder system. TECHNICAL DOCUMENTATION: FINDING NUMBER: (1) ASSESSMENT: (1) JOB ID: [id number] [employer]- All Rights Reserved Reading location - IP/workstation name: [email or web address]
== END ==
LOC: WI 12:33
PROVIDERS: ATTEND Nurse Practitioner Family
DX: N64.4 Mastodynia (principal)
CPT/HCPCS: 76642; 77066